=== PATIENT | female | born 1945 | race Caucasian/White ===

== ENCOUNTER 2024-12-03 00:10 | Emergency (ER) | payer MEDICARE, SELFPAY ==
[2024-12-03 00:12] VITALS: PULSE 86; TEMP 36.4; O2SAT 98; BMI 41.4
[2024-12-03 00:20] VITALS: BP 124/80
--- NOTE | 2024-12-03 00:54 | PC.NURSE ---
Pt admitted to the [place] 12/01/24. She has one more PO dose of Cipro and Flagyl to take to complete the course.
[2024-12-03] MEDS: ONDANSETRON PF 4 MG/2 ML VIAL IV ×2 (01:14→01:37)
[2024-12-03] MEDS: MORPHINE SULFATE 4 MG/ML VIAL IV (01:14)
--- NOTE | 2024-12-03 01:16 | ED.ABDPAIN1 ---
HPI - Abdominal Pain General Chief Complaint: Abdominal Pain Stated Complaint: ABDOMINAL PAIN Time Seen by Provider: 12/03/24 00:12 Source: patient Mode of arrival: ambulance History of Present Illness HPI narrative: This 79-year-old female with a history of diverticulitis who has been on Cipro and Flagyl for the past week after being diagnosed with diverticulitis on 11/28/2024 at [facility] presents for evaluation of periumbilical abdominal pain that radiates out to both sides of her abdomen. The patient was seen and evaluated and admitted to [facility] and discharged to the [facility] 2 days ago. Her last dose of Cipro and Flagyl is scheduled for later today. The patient states she has been having some diarrhea. She does not feel constipated. She denies any urinary symptoms. She states her symptoms started 3 weeks ago with a blister on her left foot and since she is diabetic she was nonambulatory and was transferred to a rehab center. At the rehab center she had trouble going to the bathroom and ultimately became constipated. She then started having abdominal pain and was sent to the emergency department where a CT scan of her abdomen pelvis showed wall thickening of the rectum with some slight adjacent stranding with eccentric wall thickening measuring well through the 1 cm with recommendation for direct visualization. She has not had any fever. She states her appetite is somewhat diminished. She is not having any chest pain or shortness of breath. She is on Eliquis and has had a mitral valve replacement. She request something for pain but states that Percocet makes her hallucinate. She was agreeable to morphine. Related Data Home Medications ?Medication ?Instructions ?Recorded ?Confirmed amoxicillin 500 mg capsule 500 mg PO QAM 12/03/24 12/03/24 apixaban 5 mg tablet (Eliquis) 5 mg PO BID 12/03/24 12/03/24 aspirin 81 mg tablet,delayed 81 mg PO DAILY 12/03/24 12/03/24 release (Adult Low Dose Aspirin) atorvastatin 10 mg tablet 10 mg PO DAILY 12/03/24 12/03/24 bisoprolol fumarate 5 mg tablet 5 mg PO QAM 12/03/24 12/03/24 bumetanide 1 mg tablet 2 mg PO DAILY 12/03/24 12/03/24 estradiol 0.01% (0.1 mg/gram) 1 appful vaginal .3 times a week 12/03/24 12/03/24 vaginal cream fluocinonide 0.05 % topical cream 1 applic topical QPM 12/03/24 12/03/24 fluticasone propionate 50 2 spray intranasal DAILY PRN 12/03/24 12/03/24 mcg/actuation nasal allergy symptoms spray,suspension (Flonase Allergy Relief) gabapentin 100 mg capsule 100 mg PO TID 12/03/24 12/03/24 insulin glargine 100 unit/mL 14 unit subcut QAM 12/03/24 12/03/24 subcutaneous solution (Lantus U-100 Insulin) levothyroxine 200 mcg tablet 200 mcg PO QAM 12/03/24 12/03/24 magnesium chloride 71.5 mg 71.5 mg PO BID 12/03/24 12/03/24 (magnesium chloride) tablet,delayed release (Slow-Mag) mometasone-formoterol HFA 100 2 inh inhalation BID 12/03/24 12/03/24 mcg-5 mcg/actuation aerosol inhaler (Dulera) omeprazole 40 mg capsule,delayed 40 mg PO BID 12/03/24 12/03/24 release polyethylene glycol 3350 17 17 g PO QAM 12/03/24 12/03/24 gram/dose oral powder (ClearLax) sennosides 8.6 mg tablet (senna) 8.6 mg PO QPM 12/03/24 12/03/24 sitagliptin phosphate 25 mg tablet 25 mg PO DAILY 12/03/24 12/03/24 (Januvia) spironolactone 25 mg tablet 25 mg PO QAM 12/03/24 12/03/24 trospium 60 mg capsule,extended 60 mg PO QAM 12/03/24 12/03/24 release 24 hr vit C 250 mg-vit E 90 mg-zinc 40 1 tab PO DAILY 12/03/24 12/03/24 mg-copper 1 [id number] capsule (PreserVision AREDS-2) Allergies Allergy/AdvReac Type Severity Reaction Status Date / Time dapagliflozin (From [facility]) Allergy Severe Unknown Verified 12/03/24 00:20 metformin Allergy Severe Unknown Verified 12/03/24 00:20 metoprolol Allergy Severe Unknown Verified 12/03/24 00:20 Sulfa (Sulfonamide Allergy Severe Rash Verified 12/03/24 00:20 Antibiotics) Review of Systems ROS Status of ROS 10 or more systems reviewed and unremarkable except as noted in history and below Exam Narrative Exam Narrative: Vital signs and Nursing Notes reviewed: Patient is afebrile with a normal pulse, normal blood pressure, she is not hypoxic with pulse ox of 98% on room air General: Awake, alert, oriented, no acute distress, lying comfortably on the stretcher-patient is a good historian regarding recent events HEENT: Normocephalic atraumatic, mucous membranes are moist and pink, eyes are clear, normal conjunctiva, vision is grossly intact, posterior pharynx is normal in appearance. Neck: Supple, no meningeal signs, no anterior or posterior cervical lymphadenopathy Chest: Faint bibasilar rales, no respiratory distress, no wheezing or rhonchi noted CVS: Regular rate and rhythm S1-S2, no murmurs rubs or gallops, pulses are brisk and equal bilaterally ABD: Obese, soft, diffusely tender, localizes to the periumbilical area with no rebound guarding or rigidity. I do not appreciate any peritoneal signs. Extremities: Moving all extremities, Kerlix dressing over the left foot Skin: Normal in appearance without rash,pallor, petechiae or purpura Neuro: No focal deficits Constitutional Vital Signs, click to edit/add: Last Vital Signs Temp 97.6 F 12/03/24 00:12 Pulse 86 12/03/24 00:12 Resp 16 12/03/24 00:12 BP 124/80 12/03/24 00:20 Pulse Ox 98 12/03/24 00:12 O2 Del Method Room Air 12/03/24 00:12 Course Vital Signs Vital signs: Vital Signs Temperature 97.6 F 12/03/24 00:12 Pulse Rate 86 12/03/24 00:12 Respiratory Rate 16 12/03/24 00:12 Pulse Oximetry 98 12/03/24 00:12 Oxygen Delivery Method Room Air 12/03/24 00:12 Temperature 97.6 F 12/03/24 00:12 Pulse Rate 86 12/03/24 00:12 Respiratory Rate 16 12/03/24 00:12 Blood Pressure 124/80 12/03/24 00:20 Pulse Oximetry 98 12/03/24 00:12 Oxygen Delivery Method Room Air 12/03/24 00:12 MDM - Abdominal Pain MDM Narrative Medical decision making narrative: This 79-year-old female who was recently sent to the [facility] after she was a patient at [facility] and diagnosed with diverticulitis after a CT scan showed some thickening around the rectum and was prescribed Cipro and Flagyl the last dose to be given later today presents from the [facility] for abdominal pain that is periumbilical and radiating out bilaterally. She has not had a fever. She states she is not constipated. She has been having some degree of diarrhea. She did not have any diarrhea in the emergency department. An IV was placed and she was given a dose of IV morphine and 2 doses of Zofran for nausea. She complained of ongoing pain and was given a dose of Bentyl. She has a normal white count and stable hemoglobin. Electrolytes are normal with an elevated BUN and creatinine at 44 and 2.02. Glucose is elevated at 231. Total bilirubin is 1.2. Lipase is normal at 17. CT scan of the abdomen pelvis without contrast was ordered due to her renal insufficiency and does not show any acute findings. The results of the CT scan were discussed with her and she is frustrated stating that she does not understand why she is still having this abdominal pain. She will be given a dose of tramadol and is agreeable to being transferred back to the [facility]. Lab Data Labs: Lab Results 12/03/24 Range/Units 01:08 WBC 9.3 (4.0-11.0) 10^3/uL RBC 5.85 H (4.20-5.40) 10^6/uL Hgb 16.7 H (12.0-16.0) g/dL Hct 51.9 H (36.0-48.0) % MCV 88.7 (81.0-99.0) fL MCH 28.5 (26.7-34.0) pg MCHC 32.2 (29.9-35.2) g/dL RDW 18.6 H (11.0-15.0) % Plt Count 117 L (150-450) 10^3/uL MPV 12.7 (9.5-13.5) fL Neut % (Auto) 73.2 (43.0-75.0) % Lymph % (Auto) 16.3 L (20.5-60.0) % Warren % (Auto) 7.2 (1.7-12.0) % Eos % (Auto) 1.6 (0.9-7.0) % Baso % (Auto) 0.6 (0.2-2.0) % Neut # (Auto) 6.8 H (1.4-6.5) 10^3/uL Lymph # (Auto) 1.5 (1.2-3.8) 10^3/uL Warren # (Auto) 0.7 (0.3-0.8) 10^3/uL Eos # (Auto) 0.2 (0.0-0.7) 10^3/uL Baso # (Auto) 0.1 (0.0-0.1) 10^3/uL Abs Immat Gran (auto) 0.10 H (0.00-0.03) 10^3/uL Imm/Tot Granulo (auto) 1.1 H (0.0-0.5) % Sodium 134 L (136-145) mmol/L Potassium 3.9 (3.5-5.1) mmol/L Chloride 98 (98-107) mmol/L Carbon Dioxide 28.9 (21.0-32.0) mmol/L Anion Gap 11.0 BUN 44.0 H (7.0-18.0) mg/dL Creatinine 2.02 H (0.55-1.02) mg/dL Est GFR ( Amer) 29 L (>=60 mL/min/1.73m^2) Est GFR (Non-Af Amer) 24 L (>=60 mL/min/1.73m^2) BUN/Creatinine Ratio 21.8 Glucose 231 H (74-106) mg/dL Calcium 9.6 (8.5-10.1) mg/dL Total Bilirubin 1.2 H (0.2-1.0) mg/dL AST 28 (15-37) U/L ALT 21 (14-59) U/L Alkaline Phosphatase 161 H (46-116) U/L Total Protein 7.2 (6.4-8.2) g/dL Albumin 3.0 L (3.4-5.0) g/dL Globulin 4.2 g/dL Albumin/Globulin Ratio 0.7 Lipase 17.0 (16.0-77.0) U/L Imaging Data CT scan - abdomen: Radiologist's impression: No evidence of acute abdominal pelvic pathology with normal-appearing appendix, no free air or free fluid in the abdomen or pelvis no evidence of bowel obstruction Discharge Plan Discharge Chief Complaint: Abdominal Pain Clinical Impression: Abdominal pain, Chronic kidney disease (CKD) Patient Disposition: Home, Self-Care Time of Disposition Decision: 03:57 Condition: Good Prescriptions / Home Meds: No Action amoxicillin 500 mg capsule 500 mg PO QAM Eliquis 5 mg tablet 5 mg PO BID atorvastatin 10 mg tablet 10 mg PO DAILY aspirin [Adult Low Dose Aspirin] 81 mg tablet,delayed release (DR/EC) 81 mg PO DAILY bisoprolol fumarate 5 mg tablet 5 mg PO QAM bumetanide 1 mg tablet 2 mg PO DAILY Dulera 100-5 mcg/actuation HFA aerosol inhaler 2 inh inhalation BID estradiol 0.01 % (0.1 mg/gram) cream 1 appful VAGINAL .3 times a week gabapentin 100 mg capsule 100 mg PO TID levothyroxine 200 mcg tablet 200 mcg PO QAM omeprazole 40 mg capsule,delayed release(DR/EC) 40 mg PO BID spironolactone 25 mg tablet 25 mg PO QAM trospium 60 mg capsule,extended release 24hr 60 mg PO QAM Januvia 25 mg tablet 25 mg PO DAILY sennosides [senna] 8.6 mg tablet 8.6 mg PO QPM polyethylene glycol 3350 [ClearLax] 17 gram/dose powder 17 g PO QAM insulin glargine [Lantus U-100 Insulin] 100 unit/mL solution 14 unit subcut QAM fluocinonide 0.05 % cream 1 applic topical QPM fluticasone propionate [Flonase Allergy Relief] 50 mcg/actuation spray,suspension 2 spray intranasal DAILY PRN (Reason: allergy symptoms) Rx Instructions: administer into each nostril PreserVision AREDS-2 250-90-40-1 mg capsule 1 tab PO DAILY Slow-Mag 71.5 mg tablet,delayed release (DR/EC) 71.5 mg PO BID Print Language: Kiswahili Instructions: Abdominal Pain (ED), Diabetic Kidney Disease (ED) Referrals: MARCELLE CASEY DO [Primary Care Provider] - 1 week
[2024-12-03 01:21] LABS: Basophils Absolute Auto 0.1 10^3/uL (0.0-0.1); Basophils Percent Auto 0.6 % (0.2-2.0); Eosinophils Absolute Auto 0.2 10^3/uL (0.0-0.7); Eosinophils Percent Auto 1.6 % (0.9-7.0); Hematocrit 51.9 % (36.0-48.0); Hemoglobin 16.7 g/dL (12.0-16.0); Immature Granulocytes Pct Auto 1.1 % (0.0-0.5); Lymphocytes Absolute Auto 1.5 10^3/uL (1.2-3.8); Lymphocytes Percent Auto 16.3 % (20.5-60.0); Mean Corpuscular HGB Conc 32.2 g/dL (29.9-35.2); Mean Corpuscular Hemoglobin 28.5 pg (26.7-34.0); Mean Corpuscular Volume 88.7 fL (81.0-99.0); Mean Platelet Volume 12.7 fL (9.5-13.5); Monocytes Absolute Auto 0.7 10^3/uL (0.3-0.8); Monocytes Percent Auto 7.2 % (1.7-12.0); Neutrophils Absolute Auto 6.8 10^3/uL (1.4-6.5); Neutrophils Percent Auto 73.2 % (43.0-75.0); Platelet Count 117 10^3/uL (150-450); Red Blood Count 5.85 10^6/uL (4.20-5.40); Red Cell Distribution Width 18.6 % (11.0-15.0); White Blood Count 9.3 10^3/uL (4.0-11.0)
[2024-12-03 01:35] LABS: Alanine Aminotransferase 21 U/L (14-59); Albumin Globulin Ratio 0.7; Alkaline Phosphatase 161 U/L (46-116); Aspartate Amino Transferase 28 U/L (15-37); BUN Creatinine Ratio 21.8; Bilirubin Total 1.2 mg/dL (0.2-1.0); Calcium 9.6 mg/dL (8.5-10.1); Carbon Dioxide 28.9 mmol/L (21.0-32.0); Chloride 98 mmol/L (98-107); Estimated GFR (African America 29 (>=60 mL/min/1.73m^2); Estimated GFR (Non-African Ame 24 (>=60 mL/min/1.73m^2); Globulin 4.2 g/dL; Glucose 231 mg/dL (74-106); Potassium 3.9 mmol/L (3.5-5.1); Sodium 134 mmol/L (136-145); Total Protein 7.2 g/dL (6.4-8.2)
[2024-12-03] MEDS: 0.9 % SODIUM CHLORIDE 1,000 ML 500 ML IV (01:43)
[2024-12-03] MEDS: DICYCLOMINE HCL 10 MG CAPSULE 20 MG PO (02:41)
[2024-12-03] MEDS: TRAMADOL HCL 50 MG TABLET PO (04:15)
[2024-12-03 05:07] VITALS: BP 118/56; PULSE 80; O2SAT 95
== END 2024-12-03 05:22 | disposition home or self-care (01) ==
PROVIDERS: Emergency Provider Emergency Medicine; PCP Family Medicine
DX: R10.9 Unspecified abdominal pain (principal); N18.9 Chronic kidney disease, unspecified; Z90.710 Acquired absence of both cervix and uterus; E11.9 Type 2 diabetes mellitus without complications; Z79.01 Long term (current) use of anticoagulants; Z95.2 Presence of prosthetic heart valve; Z79.4 Long term (current) use of insulin
CPT/HCPCS: 36415; 74176; 80053; 83690; 85025; 96361; 96374; 96375; 99284; J2270; J2405

== ENCOUNTER 2025-01-03 12:42 | Inpatient (IN) | payer MEDICARE, SELFPAY ==
[2025-01-03] VITALS (60 sets, daily range): BP systolic 94–159; BP diastolic 52–125; PULSE 69–113; TEMP 36.1; O2SAT 87–100; BMI 47.6; BMI 42.1
--- NOTE | 2025-01-03 12:58 | ED_ITS ---
HPI HPI - General Adult General Chief complaint: Shortness of Breath/Dyspnea Stated complaint: WEAKNESS/SOB Time Seen by Provider: 01/03/25 12:51 Source: patient Mode of arrival: ambulance Limitations: no limitations History of Present Illness HPI narrative: This 79-year-old female presents with 2-day history of shortness of breath. She denies fever but has a cough. She is status post coronary artery bypass graft in the remote past and has a history of diabetes. She has chronic atrial fibrillation. Patient had recent admission to [facility] for diverticulitis last month. She has been in long-term facility since then. In the last few days she has developed shortness of breath and wheezing with cough. Related Data Home Medications ?Medication ?Instructions ?Recorded ?Confirmed amoxicillin 500 mg capsule 500 mg PO QAM 12/03/24 01/03/25 apixaban 5 mg tablet (Eliquis) 5 mg PO BID 12/03/24 01/03/25 aspirin 81 mg tablet,delayed 81 mg PO DAILY 12/03/24 01/03/25 release (Adult Low Dose Aspirin) atorvastatin 10 mg tablet 10 mg PO DAILY 12/03/24 01/03/25 bisoprolol fumarate 5 mg tablet 5 mg PO QAM 12/03/24 01/03/25 bumetanide 1 mg tablet 2 mg PO DAILY 12/03/24 01/03/25 estradiol 0.01% (0.1 mg/gram) 1 appful vaginal .3 times a week 12/03/24 01/03/25 vaginal cream fluocinonide 0.05 % topical cream 1 applic topical QPM 12/03/24 01/03/25 fluticasone propionate 50 2 spray intranasal DAILY PRN 12/03/24 01/03/25 mcg/actuation nasal allergy symptoms spray,suspension (Flonase Allergy Relief) gabapentin 100 mg capsule 100 mg PO TID 12/03/24 01/03/25 insulin glargine 100 unit/mL 14 unit subcut QA 12/03/24 01/03/25 subcutaneous solution (Lantus U-100 Insulin) levothyroxine 200 mcg tablet 200 mcg PO QAM 12/03/24 01/03/25 magnesium chloride 71.5 mg 71.5 mg PO BID 12/03/24 01/03/25 (magnesium chloride) tablet,delayed release (Slow-Mag) mometasone-formoterol HFA 100 2 inh inhalation BID 12/03/24 01/03/25 mcg-5 mcg/actuation aerosol inhaler (Dulera) omeprazole 40 mg capsule,delayed 40 mg PO BID 12/03/24 01/03/25 release polyethylene glycol 3350 17 17 g PO QAM 12/03/24 01/03/25 gram/dose oral powder (ClearLax) sennosides 8.6 mg tablet (senna) 8.6 mg PO QPM 12/03/24 01/03/25 sitagliptin phosphate 25 mg tablet 25 mg PO DAILY 12/03/24 01/03/25 (Januvia) spironolactone 25 mg tablet 25 mg PO QAM 12/03/24 01/03/25 trospium 60 mg capsule,extended 60 mg PO QAM 12/03/24 01/03/25 release 24 hr vit C 250 mg-vit E 90 mg-zinc 40 1 tab PO DAILY 12/03/24 01/03/25 mg-copper 1 [id number] capsule (PreserVision AREDS-2) acetaminophen 325 mg capsule 650 mg PO Q6H PRN fever or pain 01/03/25 01/03/25 azithromycin 250 mg tablet See Rx Instructions PO .COMPLEX 01/03/25 01/03/25 benzonatate 100 mg capsule 100 mg PO TID 01/03/25 01/03/25 mometasone-formoterol HFA 100 2 inh inhalation Q12H 01/03/25 01/03/25 mcg-5 mcg/actuation aerosol inhaler (Dulera) ondansetron 4 mg disintegrating 4 mg PO Q6H 01/03/25 01/03/25 tablet prednisone 50 mg tablet 50 mg PO DAILY 01/03/25 01/03/25 promethazine 12.5 mg tablet 12.5 mg PO Q6H 01/03/25 01/03/25 ropinirole 0.5 mg tablet 0.5 mg PO DAILY 01/03/25 01/03/25 tramadol 50 mg tablet 25 mg PO Q6H PRN pain 01/03/25 01/03/25 Allergies Allergy/AdvReac Type Severity Reaction Status Date / Time dapagliflozin (From [facility]) Allergy Severe Unknown Verified 12/03/24 00:20 metformin Allergy Severe Unknown Verified 12/03/24 00:20 metoprolol Allergy Severe Unknown Verified 12/03/24 00:20 Sulfa (Sulfonamide Allergy Severe Rash Verified 12/03/24 00:20 Antibiotics) Opioid HPI Opioid Management Most Recent Opioid Data: Last Pain Scale 9 12/03/24 04:15 12/03/24 Review of Systems ROS Status of ROS 10 or more systems reviewed and unremark able except as noted in history and below PFS PFS Medical History Type 2 diabetes mellitus ?E11.9 - Type 2 diabetes mellitus without complications (ICD-10) Osteoarthritis ?M19.90 - Unspecified osteoarthritis, unspecified site (ICD-10) Acute constipation ?K59.00 - Constipation, unspecified (ICD-10) GERD (gastroesophageal reflux disease) ?K21.9 - Gastro-esophageal reflux disease without esophagitis (ICD-10) Pacemaker ?Z95.0 - Presence of cardiac pacemaker (ICD-10) Weakness ?R53.1 - Weakness (ICD-10) Diarrhea ?R19.7 - Diarrhea, unspecified (ICD-10) Lymphedema ?I89.0 - Lymphedema, not elsewhere classified (ICD-10) Anxiety ?F41.9 - Anxiety disorder, unspecified (ICD-10) Depression ?F32.A - Depression, unspecified (ICD-10) Hypothyroidism ?E03.9 - Hypothyroidism, unspecified (ICD-10) Asthma ?J45.909 - Unspecified asthma, uncomplicated (ICD-10) Diverticul disease small and large intestine, no perforati or abscess ?K57.50 - Diverticulosis of both small and large intestine without perforation or abscess without bleeding (ICD-10) Sleep apnea ?G47.30 - Sleep apnea, unspecified (ICD-10) Anemia ?D64.9 - Anemia, unspecified (ICD-10) Pulmonary hypertension ?I27.20 - Pulmonary hypertension, unspecified (ICD-10) Atrial fibrillation ?I48.91 - Unspecified atrial fibrillation (ICD-10) CHF (congestive heart failure) ?I50.9 - Heart failure, unspecified (ICD-10) Hypertensive cardiovascular disease ?I11.9 - Hypertensive heart disease without heart failure (ICD-10) Gastroenteritis ?K52.9 - Noninfective gastroenteritis and colitis, unspecified (ICD-10) Social History Little interest or pleasure in doing things: not at all Feeling down, depressed, or hopeless: not at all Exam Narrative Exam Narrative: Obese in appearance and in respiratory distress with conversational dyspnea. Her heart rate ranges from the 80s to the 120s. She is in atrial fibrillation on the monitor. Blood pressure is on the low normal side dropping into the 90s systolic. There is conversational dyspnea with some audible wheezing. She is mentating normally. HEENT exam is normal to inspection. Auscultation lungs reveals diminished air entry with coarse rhonchi in all lung zones. There are also scattered coarse rales. Heart has distant sounds due to body habitus with irregular rhythm. Abdomen is protuberant, soft nontender. Patient has 3+ pitting edema of the lower extremities with venous stasis dermatitis bilaterally. Constitutional Vital Signs, click to edit/add: Last Vital Signs Pulse 72 01/03/25 17:56 Resp 26 H 01/03/25 18:09 BP 106/52 01/03/25 18:09 Pulse Ox 96 01/03/25 18:09 O2 Del Method Nasal Cannula 01/03/25 17:56 O2 Flow Rate 3 01/03/25 18:09 Course Vital Signs Vital signs: Vital Signs Pulse Rate 84 01/03/25 12:46 Respiratory Rate 24 H 01/03/25 12:46 Blood Pressure 114/74 01/03/25 12:46 Pulse Oximetry 99 01/03/25 12:46 Oxygen Delivery Method Room Air 01/03/25 12:46 Pulse Rate 72 01/03/25 17:56 Respiratory Rate 26 H 01/03/25 18:09 Blood Pressure 106/52 01/03/25 18:09 Pulse Oximetry 96 01/03/25 18:09 Oxygen Delivery Method Nasal Cannula 01/03/25 17:56 Oxygen Delivery Flow Rate 3 01/03/25 18:09 Medical Decision Making [facility] Narrative Medical decision making narrative: The first twelve-lead EKG is interpreted by me and it shows atrial fibrillation with a rate of 88 bpm. There is left axis deviation and no acute ST elevation. The second twelve-lead EKG is interpreted by me and was performed a little over 4 hours after the first 1. This also shows atrial fibrillation with a rate of 78 beats a minute with left axis deviation and no acute ST elevation. CBC was fairly unremarkable except for slightly elevated white count of 11.3. Platelets were slightly low at 214,000. She had a normal hemoglobin of 15.1. Potassium was normal at 3.8. BUN was up at 61 higher than her baseline and the creatinine was also elevated at 2.05. Lactate was elevated at 2.3. Patient's troponin levels have been 44.2 initially and then 52.2. The BNP is elevated at greater than 35,000. Chest x-ray is read by me showing interstitial edema and cardiomegaly. I do not see any infiltrate. Patient's thyroid functions are significant for low TSH with elevated T4. This is suggestive of hyper thyroidism. She has been treated with 80 mg Lasix IV. She has diuresed over 300 cc of urine. She received a couple aerosol treatments which helped but the wheezing is coming back so she will get another albuterol aerosol treatment. Findings are discussed with hospitalist ENGINEERING AIDE on-call who is admitting her. Lab Data Labs: Lab Results 01/03/25 01/03/25 Range/Units 13:11 16:06 WBC 11.3 H (4.0-11.0) 10^3/uL RBC 5.31 (4.20-5.40) 10^6/uL Hgb 15.1 (12.0-16.0) g/dL Hct 46.7 (36.0-48.0) % MCV 87.9 (81.0-99.0) fL MCH 28.4 (26.7-34.0) pg MCHC 32.3 (29.9-35.2) g/dL RDW 19.1 H (11.0-15.0) % Plt Count 114 L (150-450) 10^3/uL MPV 11.6 (9.5-13.5) fL Neut % (Auto) 82.6 H (43.0-75.0) % Lymph % (Auto) 11.8 L (20.5-60.0) % Ida % (Auto) 4.0 (1.7-12.0) % Eos % (Auto) 0.0 L (0.9-7.0) % Baso % (Auto) 0.3 (0.2-2.0) % Neut # (Auto) 9.3 H (1.4-6.5) 10^3/uL Lymph # (Auto) 1.3 (1.2-3.8) 10^3/uL Ida # (Auto) 0.5 (0.3-0.8) 10^3/uL Eos # (Auto) 0.0 (0.0-0.7) 10^3/uL Baso # (Auto) 0.0 (0.0-0.1) 10^3/uL Abs Immat Gran (auto) 0.15 H (0.00-0.03) 10^3/uL Imm/Tot Granulo (auto) 1.3 H (0.0-0.5) % PT 15.9 H (9.0-11.6) sec INR 1.57 APTT 33.6 (22.3-36.2) sec VBG pH 7.402 (7.330-7.430) VBG pCO2 46.2 (40.0-52.0) mmHg Sodium 133 L (136-145) mmol/L Potassium 3.8 (3.5-5.1) mmol/L Chloride 95 L (98-107) mmol/L Carbon Dioxide 28.3 (21.0-32.0) mmol/L Anion Gap 13.5 BUN 61.0 H (7.0-18.0) mg/dL Creatinine 2.05 H (0.55-1.02) mg/dL Est GFR ( Amer) 28 L (>=60 mL/min/1.73m^2) Est GFR (Non-Af Amer) 23 L (>=60 mL/min/1.73m^2) BUN/Creatinine Ratio 29.8 Glucose 151 H (74-106) mg/dL Lactate 2.5 H* 2.3 H* (0.4-2.0) mmol/L Calcium 9.9 (8.5-10.1) mg/dL Magnesium 2.3 (1.8-2.4) mg/dL Total Bilirubin 1.7 H (0.2-1.0) mg/dL AST 24 (15-37) U/L ALT 19 (14-59) U/L Alkaline Phosphatase 156 H (46-116) U/L Troponin I High Sens 44.2 52.2 H* (4.0-51.3) pg/mL NT-Pro-B Natriuret Pep >13844.0 H* (<=1800.0) pg/mL Total Protein 6.7 (6.4-8.2) g/dL Albumin 2.7 L (3.4-5.0) g/dL Globulin 4.0 g/dL Albumin/Globulin Ratio 0.7 Free T4 2.41 H (0.76-1.46) ng/dL TSH & Free T4 Interp 0.057 L (0.358-3.740) uIU/mL Discharge Plan Discharge Chief Complaint: Shortness of Breath/Dyspnea Clinical Impression: Congestive heart failure Patient Disposition: Admitted As Inpatient Time of Disposition Decision: 18:26 Condition: Fair
--- NOTE | 2025-01-03 13:02 | ECG_ITS ---
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 Measurements Intervals [place] Rate: 88 P: -30465 [place]: 150 QRS: -59 QRSD: 126 T: 115 QT: 410 QTc: 456 Interpretive Statements Sinus rhythm with frequent premature supraventricular complexes 2420 RSR (QR) in lead V1/V2, consistent with right ventricular conduction delay 2630 Left anterior fascicular block 3414 Cannot rule out septal myocardial infarction, age undetermined 3534 Lateral myocardial infarction, age undetermined Nonspecific ST & T wave changes 5222 Moderate voltage criteria for LVH, may be normal variant 9150 abnormal ECG No previous ECG available for comparison Electronically Signed On 01-03-2025 20:49:30 EDT by STEVE PENA M.D.
[2025-01-03] MEDS: IPRATROPIUM/ALBUTEROL SULFATE 3 ML AMPUL.NEB IH ×2 (13:20→17:56)
[2025-01-03] MEDS: ALBUTEROL SULFATE 2.5 MG/3 ML VIAL NEB IH (13:20)
[2025-01-03 13:41] LABS: Basophils Percent Auto 0.3 % (0.2-2.0); Hematocrit 46.7 % (36.0-48.0); Hemoglobin 15.1 g/dL (12.0-16.0); Immature Granulocytes Abs Auto 0.15 10^3/uL (0.00-0.03); Immature Granulocytes Pct Auto 1.3 % (0.0-0.5); Lymphocytes Absolute Auto 1.3 10^3/uL (1.2-3.8); Lymphocytes Percent Auto 11.8 % (20.5-60.0); Mean Corpuscular HGB Conc 32.3 g/dL (29.9-35.2); Mean Corpuscular Hemoglobin 28.4 pg (26.7-34.0); Mean Corpuscular Volume 87.9 fL (81.0-99.0); Mean Platelet Volume 11.6 fL (9.5-13.5); Monocytes Absolute Auto 0.5 10^3/uL (0.3-0.8); Neutrophils Absolute Auto 9.3 10^3/uL (1.4-6.5); Neutrophils Percent Auto 82.6 % (43.0-75.0); PCO2 VBG 46.2 mmHg (40.0-52.0); Platelet Count 114 10^3/uL (150-450); Red Blood Count 5.31 10^6/uL (4.20-5.40); Red Cell Distribution Width 19.1 % (11.0-15.0); White Blood Count 11.3 10^3/uL (4.0-11.0); pH VBG 7.402 (7.330-7.430)
[2025-01-03 13:55] LABS: INR 1.57; Partial Thromboplastin Time 33.6 sec (22.3-36.2); Prothrombin Time 15.9 sec (9.0-11.6)
[2025-01-03 14:09] LABS: Lactate/Lactic Acid 2.5 mmol/L (0.4-2.0)
[2025-01-03 14:10] LABS: Alanine Aminotransferase 19 U/L (14-59); Albumin Globulin Ratio 0.7; Albumin Level 2.7 g/dL (3.4-5.0); Alkaline Phosphatase 156 U/L (46-116); Anion Gap 13.5; Aspartate Amino Transferase 24 U/L (15-37); BUN Creatinine Ratio 29.8; Bilirubin Total 1.7 mg/dL (0.2-1.0); Calcium 9.9 mg/dL (8.5-10.1); Carbon Dioxide 28.3 mmol/L (21.0-32.0); Chloride 95 mmol/L (98-107); Estimated GFR (African America 28 (>=60 mL/min/1.73m^2); Estimated GFR (Non-African Ame 23 (>=60 mL/min/1.73m^2); Glucose 151 mg/dL (74-106); Magnesium 2.3 mg/dL (1.8-2.4); Potassium 3.8 mmol/L (3.5-5.1); Sodium 133 mmol/L (136-145); TSH W/ REFLEX FT4 0.057 uIU/mL (0.358-3.740); Total Protein 6.7 g/dL (6.4-8.2); Troponin I High Sensitivity 44.2 pg/mL (4.0-51.3)
[2025-01-03 14:13] LABS: NT Pro B Type Natriuretic Pept >35000.0 pg/mL (<=1800.0)
[2025-01-03] MEDS: FUROSEMIDE 40 MG/4 ML VIAL 80 MG IVP (14:16)
[2025-01-03 14:38] LABS: Free T4 2.41 ng/dL (0.76-1.46)
[2025-01-03 16:35] LABS: Lactate/Lactic Acid 2.3 mmol/L (0.4-2.0)
[2025-01-03 16:36] LABS: Troponin I High Sensitivity 52.2 pg/mL (4.0-51.3)
--- NOTE | 2025-01-03 17:22 | ECG_ITS ---
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 Measurements Intervals [place] Rate: 78 P: -83889 [place]: 150 QRS: -54 QRSD: 122 T: 109 QT: 398 QTc: 432 Interpretive Statements Sinus rhythm with frequent premature supraventricular complexes 2420 RSR (QR) in lead V1/V2, consistent with right ventricular conduction delay 3414 Cannot rule out septal myocardial infarction, age undetermined 68546 Twave abnormality, possible lateral ischemia or digitalis effect 5233 Voltage criteria for LVH 7200 Abnormal left axis deviation 9150 abnormal ECG Compared to ECG 01/03/2025 12:48:55 No significant changes Electronically Signed On 01-03-2025 20:58:18 EDT by STEVE PENA M.D.
--- NOTE | 2025-01-03 19:07 | PC.NURSE ---
Report given to floor per Sharon DIANA. Pt to go up to the floor when Pauline calls.
--- NOTE | 2025-01-03 19:26 | PC.NURSE ---
Informed pt that she will be taken upstairs as soon as the floor calls us.
[2025-01-03 20:47] LABS: C Reactive Protein 2.75 mg/dL (<=0.50)
[2025-01-03 22:01] LABS: Glucometer 115 mg/dL (74-106)
[2025-01-03] MEDS: GABAPENTIN 100 MG CAPSULE PO (22:01)
[2025-01-03] MEDS: BENZONATATE 100 MG CAPSULE PO (22:01)
[2025-01-04] VITALS (10 sets, daily range): BP systolic 70–112; BP diastolic 56–84; PULSE 65–113; TEMP 36.6–36.7; O2SAT 91–99
--- NOTE | 2025-01-04 05:00 | ECG_ITS ---
The [facility] Test Date: 2025-01-04 Pat Name: AURELIO TURNER Department: Room: 2181 Gender: Female Reject Opener: : 1945 Requested By: [id number] Order Number: [id number] Reading MD: STEVE PENA M.D. Measurements Intervals [place] Rate: 78 P: [place]: QRS: -55 QRSD: 125 T: 112 QT: 411 QTc: 468 Interpretive Statements Sinus rhythm with frequent premature supraventricular complexes and demand atrial pacemaker MARKED LEFT AXIS DEVIATION [QRS AXIS < -30] POSSIBLE RIGHT VENTRICULAR CONDUCTION DELAY [RSR (QR) IN V1/V2] VOLTAGE CRITERIA FOR LVH [MEETS CRITERIA IN ONE OF: R(aVL), S(V1), R(V5), R(V5/V6)+S(V1)] POSSIBLE SEPTAL MYOCARDIAL INFARCTION [30 ms Q WAVE IN V1/V2], OF INDETERMINATE AGE MODERATE T-WAVE ABNORMALITY, CONSIDER LATERAL ISCHEMIA [-0.1+ mV T WAVE IN I/aVL/V5/V6] Compared to ECG 01/03/2025 17:27:13 Demand atrial pacing is now present Electronically Signed On 01-04-2025 7:02:24 EDT by STEVE PENA M.D.
[2025-01-04] MEDS: GABAPENTIN 100 MG CAPSULE PO ×3 (06:10→21:37)
[2025-01-04] MEDS: BUMETANIDE 1 MG/4 ML VIAL IVP ×2 (06:10→17:07)
[2025-01-04] MEDS: BENZONATATE 100 MG CAPSULE PO ×3 (06:10→21:37)
[2025-01-04 06:39] LABS: Basophils Percent Auto 0.2 % (0.2-2.0); Eosinophils Absolute Auto 0.2 10^3/uL (0.0-0.7); Eosinophils Percent Auto 1.3 % (0.9-7.0); Hematocrit 46.2 % (36.0-48.0); Hemoglobin 14.8 g/dL (12.0-16.0); Immature Granulocytes Abs Auto 0.14 10^3/uL (0.00-0.03); Immature Granulocytes Pct Auto 1.2 % (0.0-0.5); Lymphocytes Absolute Auto 1.4 10^3/uL (1.2-3.8); Lymphocytes Percent Auto 12.4 % (20.5-60.0); Mean Corpuscular Volume 87.5 fL (81.0-99.0); Mean Platelet Volume 12.6 fL (9.5-13.5); Monocytes Absolute Auto 0.4 10^3/uL (0.3-0.8); Monocytes Percent Auto 3.7 % (1.7-12.0); Neutrophils Absolute Auto 9.1 10^3/uL (1.4-6.5); Neutrophils Percent Auto 81.2 % (43.0-75.0); Platelet Count 103 10^3/uL (150-450); Red Blood Count 5.28 10^6/uL (4.20-5.40); Red Cell Distribution Width 19.5 % (11.0-15.0); White Blood Count 11.2 10^3/uL (4.0-11.0)
[2025-01-04 07:02] LABS: Alanine Aminotransferase 16 U/L (14-59); Albumin Globulin Ratio 0.6; Albumin Level 2.4 g/dL (3.4-5.0); Alkaline Phosphatase 137 U/L (46-116); Anion Gap 14.2; Aspartate Amino Transferase 36 U/L (15-37); BUN Creatinine Ratio 34.1; Bilirubin Total 1.6 mg/dL (0.2-1.0); Calcium 9.7 mg/dL (8.5-10.1); Carbon Dioxide 27.6 mmol/L (21.0-32.0); Chloride 97 mmol/L (98-107); Estimated GFR (African America 34 (>=60 mL/min/1.73m^2); Estimated GFR (Non-African Ame 28 (>=60 mL/min/1.73m^2); Globulin 3.8 g/dL; Glucose 140 mg/dL (74-106); Magnesium 2.3 mg/dL (1.8-2.4); Potassium 4.8 mmol/L (3.5-5.1); Sodium 134 mmol/L (136-145); Total Protein 6.2 g/dL (6.4-8.2); Troponin I High Sensitivity 49.5 pg/mL (4.0-51.3)
[2025-01-04] MEDS: ATORVASTATIN CALCIUM 10 MG TABLET PO (08:23)
[2025-01-04] MEDS: ASPIRIN 81 MG TABLET.DR PO (08:24)
[2025-01-04] MEDS: INSULIN GLARGINE 300 UNIT/3 ML INSULN.PEN 14 UNIT SQ (08:24)
[2025-01-04] MEDS: APIXABAN 5 MG TABLET PO ×2 (08:24→21:37)
[2025-01-04] MEDS: SPIRONOLACTONE 25 MG TABLET PO (08:24)
--- NOTE | 2025-01-04 09:23 | PM.HP ---
HPI H&P: HPI History of Present Illness Chief complaint: CHF Narrative: 79 y/o female from SNF with SOB. History of afib and CHF and c/o worsening SOB over past few days. Increased leg edema. SOB with exertion and increased weakness. Chest tight and hard to take deep breath. To ER and BNP elevated. Chest x-ray with evidence of fluid overload. Given IV lasix and admitted. Started IV bumex. Noted hypoxia with SpO2 88% on room air and added supplemental oxygen. Improved and less SOB this am. Opioid HPI Opioid Management Most Recent Pain and Opioid Data: Last Pain Scale 9 12/03/24 04:15 12/03/24 Last Pain Assessment 01/04/25 09:00 Last ORT Total Score 0 01/03/25 20:42 01/03/25 Last ORT Risk Category Low Risk 01/03/25 20:42 01/03/25 Review of Systems ROS Constitutional Reports: fatigue; Denies: fever or chills Cardiovascular Reports: edema; Denies: chest pain or palpitations Respiratory Reports: shortness of breath and cough; Denies: wheezing Gastrointestinal Denies: abdominal pain, nausea, vomiting or diarrhea Genitourinary Denies: painful urination PFSH PFS Medical History (Updated 01/04/25 @ 08:24 by Raheel Guzman MD) Abdominal pain ?R10.9 - Unspecified abdominal pain (ICD-10) Chronic kidney disease (CKD) ?N18.9 - Chronic kidney disease, unspecified (ICD-10) Congestive heart failure ?I50.9 - Heart failure, unspecified (ICD-10) Type 2 diabetes mellitus ?E11.9 - Type 2 diabetes mellitus without complications (ICD-10) Osteoarthritis ?M19.90 - Unspecified osteoarthritis, unspecified site (ICD-10) Acute constipation ?K59.00 - Constipation, unspecified (ICD-10) GERD (gastroesophageal reflux disease) ?K21.9 - Gastro-esophageal reflux disease without esophagitis (ICD-10) Weakness ?R53.1 - Weakness (ICD-10) Diarrhea ?R19.7 - Diarrhea, unspecified (ICD-10) Lymphedema ?I89.0 - Lymphedema, not elsewhere classified (ICD-10) Anxiety ?F41.9 - Anxiety disorder, unspecified (ICD-10) Depression ?F32.A - Depression, unspecified (ICD-10) Hypothyroidism ?E03.9 - Hypothyroidism, unspecified (ICD-10) Asthma ?J45.909 - Unspecified asthma, uncomplicated (ICD-10) Diverticul disease small and large intestine, no perforati or abscess ?K57.50 - Diverticulosis of both small and large intestine without perforation or abscess without bleeding (ICD-10) Sleep apnea ?G47.30 - Sleep apnea, unspecified (ICD-10) Anemia ?D64.9 - Anemia, unspecified (ICD-10) Pulmonary hypertension ?I27.20 - Pulmonary hypertension, unspecified (ICD-10) Atrial fibrillation ?I48.91 - Unspecified atrial fibrillation (ICD-10) CHF (congestive heart failure) ?I50.9 - Heart failure, unspecified (ICD-10) Hypertensive cardiovascular disease ?I11.9 - Hypertensive heart disease without heart failure (ICD-10) Gastroenteritis ?K52.9 - Noninfective gastroenteritis and colitis, unspecified (ICD-10) Surgical History (Updated 01/04/25 @ 08:24 by Raheel Guzman MD) Pacemaker ?Z95.0 - Presence of cardiac pacemaker (ICD-10) Family History (Updated 01/03/25 @ 21:14 by Pauline Rascon) Mother Family history of CHF (congestive heart failure) Family history of cancer Family history of diabetes mellitus Family history of hypertension Family history of stroke Father Family history of CHF (congestive heart failure) Family history of cancer Family history of hypertension Family history of stroke Social History (Updated 01/03/25 @ 21:15 by Pauline Rascon) Within the past year, how often did you have a drink containing alcohol: never Score interpretation: A score less than 3 is consistent with normal alcohol consumption. Smoking status: Never smoker Non-prescribed substance use: denies use Previous occupational history: rertired Highest level of school completed/degree received: some college, no degree Are you now , , , , never or living with a partner: In a typical week, how many times do you talk on the telephone with family, friends, or neighbors: 3 or more times per week How often do you get together with friends or relatives: 3 or more times per week How often do you attend jewish or hoahaoism services: never Little interest or pleasure in doing things: not at all Feeling down, depressed, or hopeless: not at all Feel stressed/tense/nervous/anxious/difficulty sleeping: not at all Do you think of yourself as: straight/heterosexual Gender Identity: female Meds Home Medications and Allergies Home Medications ?Medication ?Instructions ?Recorded ?Confirmed ?Type amoxicillin 500 mg capsule 500 mg PO QAM 12/03/24 01/03/25 History apixaban 5 mg tablet (Eliquis) 5 mg PO BID 12/03/24 01/03/25 History aspirin 81 mg tablet,delayed 81 mg PO DAILY 12/03/24 01/03/25 History release (Adult Low Dose Aspirin) atorvastatin 10 mg tablet 10 mg PO DAILY 12/03/24 01/03/25 History bisoprolol fumarate 5 mg tablet 5 mg PO QAM 12/03/24 01/03/25 History bumetanide 1 mg tablet 2 mg PO DAILY 12/03/24 01/03/25 History estradiol 0.01% (0.1 mg/gram) 1 appful vaginal .3 times a week 12/03/24 01/03/25 History vaginal cream fluocinonide 0.05 % topical cream 1 applic topical QPM 12/03/24 01/03/25 History fluticasone propionate 50 2 spray intranasal DAILY PRN 12/03/24 01/03/25 History mcg/actuation nasal allergy symptoms spray,suspension (Flonase Allergy Relief) gabapentin 100 mg capsule 100 mg PO TID 12/03/24 01/03/25 History insulin glargine 100 unit/mL 14 unit subcut QAM 12/03/24 01/03/25 History subcutaneous solution (Lantus U-100 Insulin) levothyroxine 200 mcg tablet 200 mcg PO QAM 12/03/24 01/03/25 History magnesium chloride 71.5 mg 71.5 mg PO BID 12/03/24 01/03/25 History (magnesium chloride) tablet,delayed release (Slow-Mag) mometasone-formoterol HFA 100 2 inh inhalation BID 12/03/24 01/03/25 History mcg-5 mcg/actuation aerosol inhaler (Dulera) omeprazole 40 mg capsule,delayed 40 mg PO BID 12/03/24 01/03/25 History release polyethylene glycol 3350 17 17 g PO QAM 12/03/24 01/03/25 History gram/dose oral powder (ClearLax) sennosides 8.6 mg tablet (senna) 8.6 mg PO QPM 12/03/24 01/03/25 History sitagliptin phosphate 25 mg tablet 25 mg PO DAILY 12/03/24 01/03/25 History (Januvia) spironolactone 25 mg tablet 25 mg PO QAM 12/03/24 01/03/25 History trospium 60 mg capsule,extended 60 mg PO QAM 12/03/24 01/03/25 History release 24 hr vit C 250 mg-vit E 90 mg-zinc 40 1 tab PO DAILY 12/03/24 01/03/25 History mg-copper 1 [id number] capsule (PreserVision AREDS-2) acetaminophen 325 mg capsule 650 mg PO Q6H PRN fever or pain 01/03/25 01/03/25 History azithromycin 250 mg tablet See Rx Instructions PO .COMPLEX 01/03/25 01/03/25 History benzonatate 100 mg capsule 100 mg PO TID 01/03/25 01/03/25 History ondansetron 4 mg disintegrating 4 mg PO Q6H 01/03/25 01/03/25 History tablet prednisone 50 mg tablet 50 mg PO DAILY 01/03/25 01/03/25 History promethazine 12.5 mg tablet 12.5 mg PO Q6H 01/03/25 01/03/25 History ropinirole 0.5 mg tablet 0.5 mg PO DAILY 01/03/25 01/03/25 History tramadol 50 mg tablet 25 mg PO Q6H PRN pain 01/03/25 01/03/25 History Allergies Allergy/AdvReac Type Severity Reaction Status Date / Time dapagliflozin (From [facility]) Allergy Severe Unknown Verified 12/03/24 00:20 metformin Allergy Severe Unknown Verified 12/03/24 00:20 metoprolol Allergy Severe Unknown Verified 12/03/24 00:20 Sulfa (Sulfonamide Allergy Severe Rash Verified 12/03/24 00:20 Antibiotics) Exam Constitutional Vital Signs, click to edit/add: Last Vital Signs Temp 97.9 F 01/04/25 07:22 Pulse 84 01/04/25 07:22 Resp 20 01/04/25 07:22 BP 92/63 01/04/25 07:22 Pulse Ox 96 01/04/25 07:22 O2 Del Method Nasal Cannula 01/04/25 07:22 O2 Flow Rate 1 01/04/25 07:22 Documenting provider has reviewed patient's vital signs: yes Common normals: no apparent distress, oriented x3 and alert HENMT Common normals: normocephalic Eye Common normals: PERRL and EOMs intact bilaterally Respiratory Common normals: normal respiratory effort and clear to auscultation bilaterally Cardio Common normals: regular rate, regular rhythm, no gallops, no murmurs and no rub GI Common normals: Normal to inspection, nondistended, normoactive bowel sounds present and non-tender Extremity General: edema (2+ pitting edema) Results Labs Labs: Short CBC 01/03/25 01/04/25 Range/Units 13:11 05:51 WBC 11.3 H 11.2 H (4.0-11.0) 10^3/uL Hgb 15.1 14.8 (12.0-16.0) g/dL Hct 46.7 46.2 (36.0-48.0) % Plt Count 114 L 103 L (150-450) 10^3/uL BMP 01/03/25 01/04/25 13:11 05:51 Sodium 133 L 134 L Potassium 3.8 4.8 Chloride 95 L 97 L Carbon Dioxide 28.3 27.6 BUN 61.0 H 60.0 H Creatinine 2.05 H 1.76 H Glucose 151 H 140 H Calcium 9.9 9.7 Liver Function 01/03/25 01/04/25 Range/Units 13:11 05:51 Total Bilirubin 1.7 H 1.6 H (0.2-1.0) mg/dL AST 24 36 (15-37) U/L ALT 19 16 (14-59) U/L Alkaline Phosphatase 156 H 137 H (46-116) U/L Albumin 2.7 L 2.4 L (3.4-5.0) g/dL ABG ABG results: 01/03/25 13:11 VBG pH 7.402 VBG pCO2 46.2 Assessment and Plan Assessment and Plan (1) Acute on chronic heart failure with preserved ejection fraction (HFpEF): (2) Acute hypoxic respiratory failure: (3) History of heart valve replacement: (4) SABINO (acute kidney injury): (5) Type 2 diabetes mellitus with hyperglycemia: (6) Adult hypothyroidism: (7) Chronic atrial fibrillation: (8) CKD stage 3b, GFR 30-44 ml/min: Plan Presented with fluid overload and continue IV bumex. Monitor weight. Resume home medication. Outpatient records showed echo 11/15/24 with EF 70%. Start PT/OT for weakness. Wean oxygen as tolerated. Plan on at least a 2 midnight stay for inpatient medically necessary services. Urinary Catheter Management Urinary Catheter Management Pure Wick: Cath placed during this visit: yes Urethral indwelling: Yes Reason for continuing: measure accurate output Insertion date: 01/03/25 Insertion time: 14:30
--- NOTE | 2025-01-04 09:27 | SWNOTE1 ---
SW reached out to Olivia at [facility], pt is from there skilled.
[2025-01-04 10:52] LABS: Glucometer 189 mg/dL (74-106)
--- NOTE | 2025-01-04 11:18 | SWNOTE1 ---
Important Message from Medicare reviewed and discussed with patient. Pt. verbalized understanding and signed the form. Original given to patient and copy placed in patient?s chart.
--- NOTE | 2025-01-04 11:19 | SWNOTE1 ---
SW met with pt to discuss dc needs. Pt was at [facility] to get stronger. She stated she just started not feeling well and then her legs became swollen and she just was not doing well these past few days. Pt's plan is to return to [facility] at discharge. She does not normally wear oxygen there. She does use a walker at [facility]. Pt voiced that prior to [facility] she was at there independent living or AL, but stated she has to be stronger before she could return there. At this time pt voiced no needs. SW to send updates to [facility]. updates sent to [facility] including face sheet, ED note, H&P, vitals, labs, PT/OT notes, nursing notes, and med list.
[2025-01-04] MEDS: INSULIN ASPART 300 UNIT/3 ML PEN SUBQ (12:07)
[2025-01-04] MEDS: GUAIFENESIN 200 MG/10 ML LIQUID PO ×2 (13:05→19:31)
[2025-01-04] MEDS: ACETAMINOPHEN 325 MG TABLET 650 MG PO (14:38)
[2025-01-04] MEDS: IPRATROPIUM/ALBUTEROL SULFATE 3 ML AMPUL.NEB IH (15:43)
[2025-01-04 16:33] LABS: Glucometer 122 mg/dL (74-106)
[2025-01-04 21:38] LABS: Glucometer 138 mg/dL (74-106)
[2025-01-05] VITALS (11 sets, daily range): BP systolic 82–137; BP diastolic 53–96; PULSE 60–85; TEMP 36.3–36.6; O2SAT 90–97; BMI 41.9
[2025-01-05] MEDS: GUAIFENESIN 200 MG/10 ML LIQUID PO ×3 (02:25→18:34)
[2025-01-05] MEDS: IPRATROPIUM/ALBUTEROL SULFATE 3 ML AMPUL.NEB IH ×2 (02:35→20:45)
[2025-01-05 06:57] LABS: Basophils Percent Auto 0.3 % (0.2-2.0); Eosinophils Absolute Auto 0.3 10^3/uL (0.0-0.7); Eosinophils Percent Auto 2.9 % (0.9-7.0); Hemoglobin 15.1 g/dL (12.0-16.0); Immature Granulocytes Abs Auto 0.16 10^3/uL (0.00-0.03); Immature Granulocytes Pct Auto 1.6 % (0.0-0.5); Lymphocytes Absolute Auto 1.6 10^3/uL (1.2-3.8); Mean Corpuscular HGB Conc 33.6 g/dL (29.9-35.2); Mean Corpuscular Hemoglobin 29.4 pg (26.7-34.0); Mean Corpuscular Volume 87.7 fL (81.0-99.0); Mean Platelet Volume 11.1 fL (9.5-13.5); Monocytes Absolute Auto 0.3 10^3/uL (0.3-0.8); Monocytes Percent Auto 3.3 % (1.7-12.0); Neutrophils Absolute Auto 7.4 10^3/uL (1.4-6.5); Neutrophils Percent Auto 75.9 % (43.0-75.0); Platelet Count 105 10^3/uL (150-450); Red Blood Count 5.13 10^6/uL (4.20-5.40); Red Cell Distribution Width 19.3 % (11.0-15.0); White Blood Count 9.8 10^3/uL (4.0-11.0)
[2025-01-05] MEDS: GABAPENTIN 100 MG CAPSULE PO ×3 (06:59→21:15)
[2025-01-05] MEDS: BENZONATATE 100 MG CAPSULE PO ×3 (06:59→21:15)
[2025-01-05 07:13] LABS: Alanine Aminotransferase 18 U/L (14-59); Albumin Globulin Ratio 0.6; Albumin Level 2.4 g/dL (3.4-5.0); Alkaline Phosphatase 145 U/L (46-116); Anion Gap 16.1; Aspartate Amino Transferase 27 U/L (15-37); BUN Creatinine Ratio 33.1; Bilirubin Total 1.9 mg/dL (0.2-1.0); Calcium 9.3 mg/dL (8.5-10.1); Carbon Dioxide 26.4 mmol/L (21.0-32.0); Chloride 97 mmol/L (98-107); Estimated GFR (African America 33 (>=60 mL/min/1.73m^2); Estimated GFR (Non-African Ame 28 (>=60 mL/min/1.73m^2); Globulin 3.7 g/dL; Glucose 124 mg/dL (74-106); Magnesium 2.2 mg/dL (1.8-2.4); Potassium 3.5 mmol/L (3.5-5.1); Sodium 136 mmol/L (136-145); Total Protein 6.1 g/dL (6.4-8.2)
[2025-01-05] MEDS: APIXABAN 5 MG TABLET PO ×2 (09:23→21:15)
[2025-01-05] MEDS: ACETAMINOPHEN 325 MG TABLET 650 MG PO (09:23)
[2025-01-05] MEDS: ASPIRIN 81 MG TABLET.DR PO (09:23)
[2025-01-05] MEDS: ATORVASTATIN CALCIUM 10 MG TABLET PO (09:23)
[2025-01-05] MEDS: INSULIN GLARGINE 300 UNIT/3 ML INSULN.PEN 14 UNIT SQ (09:23)
--- NOTE | 2025-01-05 10:22 | CM.NOTE ---
Rounds made with Dr. Guzman. Dr. Guzman discussed adjusting medications, repeating CXR. Marcie verbalized understanding. No discharge for today.
--- NOTE | 2025-01-05 10:23 | PM.PN ---
Progress Note: Subjective Subjective Interval history: Patient doesn't feel well this am. Continued cough and developed low BP. Edema improved. Bumex held due to low BP. Not lightheaded or dizzy. Mild SOB. No nausea and normal PO. No chest pain or palpitations. Exam Constitutional Vital Signs, click to edit/add: Last Vital Signs Temp 97.6 F 01/05/25 09:29 Pulse 78 01/05/25 09:29 Resp 22 H 01/05/25 09:29 BP 82/53 L 01/05/25 09:29 Pulse Ox 92 L 01/05/25 09:29 O2 Del Method Room Air 01/05/25 09:29 O2 Flow Rate 1 01/04/25 20:23 Documenting provider has reviewed patient's vital signs: yes Common normals: no apparent distress, oriented x3 and alert HENMT Common normals: normocephalic Eye Common normals: PERRL and EOMs intact bilaterally Respiratory Auscultation: crackles Laterality: bilateral Cardio Common normals: regular rate, regular rhythm, no gallops, no murmurs and no rub GI Common normals: Normal to inspection, nondistended, normoactive bowel sounds present and non-tender Extremity General: edema (1+ bipedal edema) Progress Note: Objective Labs Labs: Short CBC 01/05/25 Range/Units 05:43 WBC 9.8 (4.0-11.0) 10^3/uL Hgb 15.1 (12.0-16.0) g/dL Hct 45.0 (36.0-48.0) % Plt Count 105 L (150-450) 10^3/uL BMP 01/05/25 05:43 Sodium 136 Potassium 3.5 Chloride 97 L Carbon Dioxide 26.4 BUN 59.0 H Creatinine 1.78 H Glucose 124 H Calcium 9.3 Liver Function 01/05/25 Range/Units 05:43 Total Bilirubin 1.9 H (0.2-1.0) mg/dL AST 27 (15-37) U/L ALT 18 (14-59) U/L Alkaline Phosphatase 145 H (46-116) U/L Albumin 2.4 L (3.4-5.0) g/dL Progress Note: A&P Assessment and Plan (1) Acute on chronic heart failure with preserved ejection fraction (HFpEF): (2) Acute hypoxic respiratory failure: (3) History of heart valve replacement: (4) SABINO (acute kidney injury): (5) Type 2 diabetes mellitus with hyperglycemia: (6) Adult hypothyroidism: (7) Chronic atrial fibrillation: (8) CKD stage 3b, GFR 30-44 ml/min: Plan Diuresed well and edema improved. BP low and held oral bumex. Add midodrine to help BP. Resume oral bumex in am. C/o cough and repeat chest x-ray. Continue PT/OT. If stable likely discharge in next 1-2 days. Urinary Catheter Management Urinary Catheter Management Pure Wick: Cath placed during this visit: yes, but has since been removed by the nurse Urethral indwelling: Yes Insertion date: 01/04/25 Insertion time: 14:00 Removal date: 01/05/25 Removal time: 08:00
--- NOTE | 2025-01-05 10:32 | XR_ITS ---
[address] [address] Patient Name: AURELIO TURNER MRN: [id number] date: 1945 Sex: F Assigned Patient Location: [place] Current Patient Location: [place] Accession/Order Number: [id number] Exam Date: 01/05/2025 11:28 Report Date: 01/05/2025 11:29 At the request of: JUANI THOMPSON MD Procedure: XR chest 1V Single view chest: CLINICAL HISTORY: Follow-up shortness of breath. COMPARISON: None FINDINGS: Aortic valve replacement. Pacemaker device and sternotomy wires. Cardiomegaly with vascular congestion and interstitial changes similar to the prior study. No new consolidation pneumothorax pleural effusion or free air. XR/XR chest 1V IMPRESSION: CHF FINDINGS, UNCHANGED FROM THE PRIOR STUDY. Impression dictated by: Robert High Jr., D.O. 01/05/2025 11:29 AM Dictation Location: [place] [address] Electronically authenticated by: [id number] Y Date: 01/05/2025 11:29
[2025-01-05 11:11] LABS: Glucometer 148 mg/dL (74-106)
--- NOTE | 2025-01-05 11:31 | PT.DAILY ---
Physical Therapy Daily Note PT Daily Note/Assess Start: 01/05/25 11:25 Freq: Status: Active Protocol: Document 01/05/25 11:15 DEBRA (Rec: 01/05/25 11:31 DEBRA [id number]) Physical Therapy Daily Note/Assessment Time In/Time Out Time In 11:13 Time Out 11:24 Subjective Subjective Patient reports feeling awful due to coughing but is agreeable to supine exercises. Patient back in bed after sitting up in chair this morning. Therapeutic Exercise Time Therapeutic Exercise 11 Minutes (minutes) Therapeutic Exercise 1 Units Therapeutic Exercise Treatment Therapeutic Exercise Supine Exercises: Treatment QS x 10 GS x 10 AP x 10 AAROM SLR x 10 AAROM hip abd x 10 Heel slides x 8 due to increased fatigue Total Physical Therapy Time Total Therapy 11 Minutes Total Physical 1 Therapy Units Summary Daily Note Summary Patient completes x 10 supine exercises in bed, patient just got back in bed after sitting up in the chair this morning. Increased fatigue noted during exercises and post treatment, patient only completes x8 heel slides due to increased fatigue. Patient in bed with rails up, call light in reach, pumps on, and all needs met post treatment. Recommend SNF at [facility] to continue to improve endurance and B LE strength in order to return to PLOF.
[2025-01-05] MEDS: SPIRONOLACTONE 25 MG TABLET PO (11:39)
[2025-01-05] MEDS: MIDODRINE HCL 5 MG TABLET 10 MG PO ×2 (11:39→18:34)
--- NOTE | 2025-01-05 12:47 | DIETREC ---
Recommend change diet order to: 1800 kcal CCD, Heart Healthy. Continue 1500 mL fluid restriction as ordered. No supplement recommendation at this time d/t pt c/o feeling ill. [place] text to Dr. Guzman.
--- NOTE | 2025-01-05 15:18 | SWNOTE1 ---
Pt's son in room. He requested to speak with SW as he needed something notarized, pt's living will? SW met with pt and son. Pt had printed off financial power of employment law attorney paperwork that needed notarized. SW reviewed and it did state that form needed notarized for any financial institution to use. Pt had completed one awhile ago and her other son was on it, but she crossed off his name. They recently had to try to use it to move money from a CD to savings account. It took hours, but bank finally agreed. Pt is alert and oriented. WENDY spoke with Edwina in [facility] who is notary and she was able to come over and notarize form. Pt confirmed she wants her son and 2 grand-kids on form. Pt signed form and Edwina notarized. SW and pt and pt's son then had conversation about code status. WENDY confirmed from chart pt is DNRCC. SW brought paperwork that explained the differences. Pt confirmed she would like to be DNRCC. WENDY then asked if she would like to completed HCPOA for medical decisions. Pt in agreement. WENDY completed HCPOA paperwork and made copy for son and provided him with original as pt will be returning to [facility] at discharge. WENDY put copy on chart and sent copy to [facility].
--- NOTE | 2025-01-05 16:26 | SWNOTE1 ---
Updated physician notes, PT/OT, labs, vitals, and nursing notes sent to [facility].
[2025-01-05 17:05] LABS: Glucometer 113 mg/dL (74-106)
[2025-01-05 20:44] LABS: Glucometer 95 mg/dL (74-106)
[2025-01-05] MEDS: METOPROLOL TARTRATE 50 MG TABLET PO (21:15)
[2025-01-06] VITALS (8 sets, daily range): BP systolic 94–121; BP diastolic 72–86; PULSE 58–113; TEMP 36.3–36.6; O2SAT 89–94
[2025-01-06] MEDS: GABAPENTIN 100 MG CAPSULE PO ×2 (05:18→13:44)
[2025-01-06] MEDS: BENZONATATE 100 MG CAPSULE PO ×2 (05:18→13:44)
[2025-01-06] MEDS: GUAIFENESIN 200 MG/10 ML LIQUID PO (05:18)
[2025-01-06 05:59] LABS: Basophils Absolute Auto 0.1 10^3/uL (0.0-0.1); Basophils Percent Auto 0.6 % (0.2-2.0); Eosinophils Absolute Auto 0.4 10^3/uL (0.0-0.7); Eosinophils Percent Auto 3.8 % (0.9-7.0); Hematocrit 46.9 % (36.0-48.0); Hemoglobin 15.4 g/dL (12.0-16.0); Immature Granulocytes Abs Auto 0.35 10^3/uL (0.00-0.03); Immature Granulocytes Pct Auto 3.4 % (0.0-0.5); Lymphocytes Absolute Auto 1.9 10^3/uL (1.2-3.8); Lymphocytes Percent Auto 18.6 % (20.5-60.0); Mean Corpuscular HGB Conc 32.8 g/dL (29.9-35.2); Mean Corpuscular Hemoglobin 28.4 pg (26.7-34.0); Mean Corpuscular Volume 86.4 fL (81.0-99.0); Mean Platelet Volume 12.4 fL (9.5-13.5); Monocytes Absolute Auto 0.3 10^3/uL (0.3-0.8); Monocytes Percent Auto 3.2 % (1.7-12.0); Neutrophils Absolute Auto 7.3 10^3/uL (1.4-6.5); Neutrophils Percent Auto 70.4 % (43.0-75.0); Platelet Count 127 10^3/uL (150-450); Red Blood Count 5.43 10^6/uL (4.20-5.40); Red Cell Distribution Width 19.9 % (11.0-15.0); White Blood Count 10.3 10^3/uL (4.0-11.0)
[2025-01-06 06:15] LABS: Alanine Aminotransferase 67 U/L (14-59); Albumin Globulin Ratio 0.6; Albumin Level 2.2 g/dL (3.4-5.0); Alkaline Phosphatase 175 U/L (46-116); Anion Gap 15.6; Aspartate Amino Transferase 129 U/L (15-37); BUN Creatinine Ratio 34.5; Bilirubin Total 2.3 mg/dL (0.2-1.0); Carbon Dioxide 25.2 mmol/L (21.0-32.0); Chloride 98 mmol/L (98-107); Estimated GFR (African America 37 (>=60 mL/min/1.73m^2); Estimated GFR (Non-African Ame 30 (>=60 mL/min/1.73m^2); Globulin 3.6 g/dL; Glucose 73 mg/dL (74-106); Potassium 3.8 mmol/L (3.5-5.1); Sodium 135 mmol/L (136-145); Total Protein 5.8 g/dL (6.4-8.2)
[2025-01-06] MEDS: MIDODRINE HCL 5 MG TABLET 10 MG PO ×2 (08:59→12:17)
[2025-01-06] MEDS: APIXABAN 5 MG TABLET PO (08:59)
[2025-01-06] MEDS: BUMETANIDE 1 MG TABLET 2 MG PO (08:59)
[2025-01-06] MEDS: ASPIRIN 81 MG TABLET.DR PO (08:59)
[2025-01-06] MEDS: ATORVASTATIN CALCIUM 10 MG TABLET PO (08:59)
[2025-01-06] MEDS: SPIRONOLACTONE 25 MG TABLET PO (08:59)
--- NOTE | 2025-01-06 10:45 | CM.NOTE ---
Rounds made with Dr. Guzman, pt will discharge today to [facility] for skilled therapy.
--- NOTE | 2025-01-06 10:59 | CM.NOTE ---
2nd Important Message From Medicare discussed with pt, pt denies questions or concerns.
[2025-01-06 11:06] LABS: Glucometer 112 mg/dL (74-106)
--- NOTE | 2025-01-06 11:32 | PM.DS1 ---
DS: Providers Provider Date of admission: 01/04/25 09:15 Primary care physician: MARCELLE CASEY DO Consults: 01/04/25 09:16 Occupational Therapy Eval and Treat Routine Reason for consultation: Weakness Physical Therapy Eval and Treat Routine Reason for consultation: Weakness DS: Diagnosis Discharge Diagnosis (1) Acute on chronic heart failure with preserved ejection fraction (HFpEF): (2) Acute hypoxic respiratory failure: (3) History of heart valve replacement: (4) SABINO (acute kidney injury): (5) Type 2 diabetes mellitus with hyperglycemia: (6) Adult hypothyroidism: (7) Chronic atrial fibrillation: (8) CKD stage 3b, GFR 30-44 ml/min: DS: Summary Status at Discharge Cognitive/behavioral status at discharge: Reason for admission: See H&P for details. 79 y/o female from SNF with SOB. History of afib and CHF and c/o worsening SOB over past few days. Increased leg edema. SOB with exertion and increased weakness. Chest tight and hard to take deep breath. To ER and BNP elevated. Chest x-ray with evidence of fluid overload. Given IV lasix and admitted. Hospital course: Started IV bumex. Noted hypoxia with SpO2 88% on room air and added supplemental oxygen. Improved and less SOB. C/o pain in abdomen from coughing. BP decreased and had to hold Bumex. Good urine output and edema improved. Repeat chest x-ray stable. Added midodrine for low BP. Continued PT/OT. Improved and BP stable. More alert and fatigue improved. Transferred to SNF in stable condition. Resume home medication as directed and will continue midodrine for low BP. Time Spent with Patient Time attestation: Total time spent providing and/or coordinating discharge services: Time spent: greater than 30 minutes Exam Constitutional Vital Signs, click to edit/add: Last Vital Signs Temp 97.3 F L 01/06/25 11:25 Pulse 64 01/06/25 11:25 Resp 18 01/06/25 11:25 BP 106/73 01/06/25 11:25 Pulse Ox 93 L 01/06/25 11:25 O2 Del Method Room Air 01/06/25 11:25 O2 Flow Rate 1 01/04/25 20:23 Documenting provider has reviewed patient's vital signs: yes Common normals: no apparent distress, oriented x3 and alert HENMT Common normals: normocephalic Eye Common normals: PERRL and EOMs intact bilaterally Respiratory Common normals: normal respiratory effort and clear to auscultation bilaterally Cardio Common normals: regular rate, regular rhythm, no gallops, no murmurs and no rub GI Common normals: Normal to inspection, nondistended, normoactive bowel sounds present and non-tender Extremity General: edema (1+ bipedal edema) DS: Data Data Completed and Pending Labs on day of discharge: Labs from last 24 hours 01/06/25 01/06/25 01/05/25 11:04 05:50 20:33 WBC 10.3 RBC 5.43 H Hgb 15.4 Hct 46.9 MCV 86.4 MCH 28.4 MCHC 32.8 RDW 19.9 H Plt Count 127 L MPV 12.4 Neut % (Auto) 70.4 Lymph % (Auto) 18.6 L [place] % (Auto) 3.2 Eos % (Auto) 3.8 Baso % (Auto) 0.6 Neut # (Auto) 7.3 H Lymph # (Auto) 1.9 [place] # (Auto) 0.3 Eos # (Auto) 0.4 Baso # (Auto) 0.1 Abs Immat Gran (auto) 0.35 H Imm/Tot Granulo (auto) 3.4 H Sodium 135 L Potassium 3.8 Chloride 98 Carbon Dioxide 25.2 Anion Gap 15.6 BUN 57.0 H Creatinine 1.65 H Est GFR ( Amer) 37 L Est GFR (Non-Af Amer) 30 L BUN/Creatinine Ratio 34.5 Glucose 73 L Calcium 9.0 Magnesium 2.0 Total Bilirubin 2.3 H AST 129 H ALT 67 H Alkaline Phosphatase 175 H Total Protein 5.8 L Albumin 2.2 L Globulin 3.6 Albumin/Globulin Ratio 0.6 POC Glucose 112 H 95 01/05/25 16:37 WBC RBC Hgb Hct MCV MCH MCHC RDW Plt Count MPV Neut % (Auto) Lymph % (Auto) [place] % (Auto) Eos % (Auto) Baso % (Auto) Neut # (Auto) Lymph # (Auto) [place] # (Auto) Eos # (Auto) Baso # (Auto) Abs Immat Gran (auto) Imm/Tot Granulo (auto) Sodium Potassium Chloride Carbon Dioxide Anion Gap BUN Creatinine Est GFR ( Amer) Est GFR (Non-Af Amer) BUN/Creatinine Ratio Glucose Calcium Magnesium Total Bilirubin AST ALT Alkaline Phosphatase Total Protein Albumin Globulin Albumin/Globulin Ratio POC Glucose 113 H Preliminary micro results at discharge 01/03/25 13:18 Blood Culture Result 2 - Preliminary Blood 01/03/25 13:11 Blood Culture Result 1 - Preliminary Blood NO GROWTH AT 36-48 HOURS. FINAL TO FOLLOW. Discharge Plan Discharge Disposition: Xfer SNF Condition: Fair Discharge Medications: New lorazepam 0.5 mg Tablet 0.5 mg PO TID PRN (Reason: Anxiety) 5 Days Qty: 15 0RF midodrine 5 mg Tablet 10 mg PO TIDWM Qty: 90 0RF Continued benzonatate 100 mg capsule 100 mg PO TID ropinirole 0.5 mg tablet 0.5 mg PO DAILY ondansetron 4 mg tablet,disintegrating 4 mg PO Q6H acetaminophen 325 mg capsule 650 mg PO Q6H PRN (Reason: fever or pain) azithromycin 250 mg tablet See Rx Instructions .ROUTE .COMPLEX Rx Instructions: For 250 mg dose pack: take 500 mg today (day 1), then 250 mg for 4 days (days 2-5) prednisone 50 mg tablet 50 mg PO DAILY promethazine 12.5 mg tablet 12.5 mg PO Q6H tramadol 50 mg tablet 25 mg PO Q6H PRN (Reason: pain) 5 Days Qty: 10 0RF amoxicillin 500 mg capsule 500 mg PO QAM Eliquis 5 mg tablet 5 mg PO BID atorvastatin 10 mg tablet 10 mg PO DAILY aspirin [Adult Low Dose Aspirin] 81 mg tablet,delayed release (DR/EC) 81 mg PO DAILY bisoprolol fumarate 5 mg tablet 5 mg PO QAM bumetanide 1 mg tablet 2 mg PO DAILY Dulera 100-5 mcg/actuation HFA aerosol inhaler 2 inh inhalation BID estradiol 0.01 % (0.1 mg/gram) cream 1 appful VAGINAL .3 times a week gabapentin 100 mg capsule 100 mg PO TID levothyroxine 200 mcg tablet 200 mcg PO QAM omeprazole 40 mg capsule,delayed release(DR/EC) 40 mg PO BID spironolactone 25 mg tablet 25 mg PO QAM trospium 60 mg capsule,extended release 24hr 60 mg PO QAM Januvia 25 mg tablet 25 mg PO DAILY sennosides [senna] 8.6 mg tablet 8.6 mg PO QPM polyethylene glycol 3350 [ClearLax] 17 gram/dose powder 17 g PO QAM insulin glargine [Lantus U-100 Insulin] 100 unit/mL solution 14 unit subcut QAM fluocinonide 0.05 % cream 1 applic topical QPM fluticasone propionate [Flonase Allergy Relief] 50 mcg/actuation spray,suspension 2 spray intranasal DAILY PRN (Reason: allergy symptoms) Rx Instructions: administer into each nostril PreserVision AREDS-2 250-90-40-1 mg capsule 1 tab PO DAILY Slow-Mag 71.5 mg tablet,delayed release (DR/EC) 71.5 mg PO BID Print Language: Yi Forms: Portal Instructions
--- NOTE | 2025-01-06 11:56 | SWNOTE1 ---
Pt is stable for discharge today. SW to set up discharge.
--- NOTE | 2025-01-06 13:17 | SWNOTE1 ---
WENDY called and set up [facility] for 2;00pm. Pt is returning to [facility]. WENDY faxed dc med rec and dc summary to [facility]. WENDY left message for pt's son with time. WENDY notified nurse and [facility] with time.
--- NOTE | 2025-01-06 13:23 | OT.DAILY ---
Occupational Therapy Daily Note OT Inpatient Daily Visit Note Start: 01/04/25 10:06 Freq: Status: Active Protocol: Document 01/06/25 13:21 [id number] (Rec: 01/06/25 13:23 [id number]) Visit Not Completed Visit Not Completed Visit Not Completed Nursing request to hold Due to: Other Reason Visit Nursing request to hold therapy session at this time, Not Completed preparing Pt for discharge to SNF. OT Visit Details Time In/Time Out Time In 13:15 Time Out 13:16 GG. Functional Abilities and Goals-Complete for Swing Bed Patients Only [id number]. Self-Care [id number]. Mobility
--- NOTE | 2025-01-06 13:41 | PC.NURSE ---
Report called to Sabine Rojo. Transport set for 2 pm
== END 2025-01-06 14:08 | DRG 291 ==
LOC: ER 18:26 → MS 01-04 06:59
PROVIDERS: Registered Nurse; Admitting Provider Family Medicine; Emergency Provider Emergency Medicine; PCP Family Medicine; Visit Provider Family Medicine
DX: I13.0 Hypertensive heart and chronic kidney disease with heart failure and stage 1 through stage 4 chronic kidney disease, or unspecified chronic kidney disease (principal); I50.33 Acute on chronic diastolic (congestive) heart failure; J96.01 Acute respiratory failure with hypoxia; N17.9 Acute kidney failure, unspecified; I48.20 Chronic atrial fibrillation, unspecified; N18.32 Chronic kidney disease, stage 3b; E11.22 Type 2 diabetes mellitus with diabetic chronic kidney disease; E11.65 Type 2 diabetes mellitus with hyperglycemia; Z95.2 Presence of prosthetic heart valve; E03.9 Hypothyroidism, unspecified; K21.9 Gastro-esophageal reflux disease without esophagitis; F41.9 Anxiety disorder, unspecified; F32.A Depression, unspecified; J45.909 Unspecified asthma, uncomplicated; G47.30 Sleep apnea, unspecified; I27.20 Pulmonary hypertension, unspecified; Z95.0 Presence of cardiac pacemaker; Z79.82 Long term (current) use of aspirin; Z79.899 Other long term (current) drug therapy; Z79.4 Long term (current) use of insulin; Z79.890 Hormone replacement therapy; R03.1 Nonspecific low blood-pressure reading; Z79.01 Long term (current) use of anticoagulants; Z66 Do not resuscitate
CPT/HCPCS: 36415; 71045; 80053; 82800; 82947; 82948; 83605; 83735; 83880; 84439; 84443; 84484; 85025; 85610; 85730; 86140; 87040; 93005; 94640; 94667; 94668; 94761; 96374; 96375; 97110; 97161; 97165; 97530; 99285; G0378; J1938

== ENCOUNTER 2025-01-06 22:38 | Inpatient (IN) | payer MEDICARE, SELFPAY ==
[2025-01-06] VITALS (11 sets, daily range): BP systolic 80–126; BP diastolic 40–59; PULSE 54–86; TEMP 36.2; O2SAT 97–100
--- NOTE | 2025-01-06 23:15 | ECG_ITS ---
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 Measurements Intervals [place] Rate: 84 P: 68 SD: 176 QRS: 185 QRSD: 116 T: 64 QT: 442 QTc: 483 Interpretive Statements 1100 Sinus rhythm 1474 with frequent supraventricular premature complexes [address] depression 5130 Right ventricular hypertrophy 8304 Long QTc interval 9150 abnormal ECG Compared to ECG 01/04/2025 05:06:51 ST (T wave) deviation now present Right ventricular hypertrophy now present Atrial-paced complex(es) or rhythm no longer present Left ventricular hypertrophy no longer present Myocardial infarct finding no longer present T-wave abnormality no longer present Electronically Signed On 01-07-2025 6:44:04 EDT by STEVE PENA M.D.
--- NOTE | 2025-01-06 23:30 | ED.URI1 ---
HPI - URI/Sore Throat General Chief Complaint: Upper Respiratory Infection Stated Complaint: other Time Seen by Provider: 01/06/25 23:09 Source: patient History of Present Illness HPI Narrative: presents from halfway complaining of shortness of breath. Denies abdominal or chest pain. Discharged home from hospital yesterday after admission for CHF. Denies fever, nausea or pain. States she just can't breathe. breathing is labored despite wearing 02. she has past history of hypotension that has been treated with midodrine. Denies past history of COPD. she is [facility] Related Data Home Medications ?Medication ?Instructions ?Recorded ?Confirmed amoxicillin 500 mg capsule 500 mg PO QAM 12/03/24 01/07/25 apixaban 5 mg tablet (Eliquis) 5 mg PO BID 12/03/24 01/07/25 aspirin 81 mg tablet,delayed 81 mg PO DAILY 12/03/24 01/07/25 release (Adult Low Dose Aspirin) atorvastatin 10 mg tablet 10 mg PO DAILY 12/03/24 01/07/25 bisoprolol fumarate 5 mg tablet 5 mg PO QAM 12/03/24 01/07/25 bumetanide 1 mg tablet 2 mg PO DAILY 12/03/24 01/07/25 estradiol 0.01% (0.1 mg/gram) 1 appful vaginal .3 times a week 12/03/24 01/07/25 vaginal cream fluocinonide 0.05 % topical cream 1 applic topical QPM 12/03/24 01/07/25 fluticasone propionate 50 2 spray intranasal DAILY PRN 12/03/24 01/07/25 mcg/actuation nasal allergy symptoms spray,suspension (Flonase Allergy Relief) gabapentin 100 mg capsule 100 mg PO TID 12/03/24 01/07/25 insulin glargine 100 unit/mL 14 unit subcut QAM 12/03/24 01/07/25 subcutaneous solution (Lantus U-100 Insulin) levothyroxine 200 mcg tablet 200 mcg PO QAM 12/03/24 01/07/25 magnesium chloride 71.5 mg 71.5 mg PO BID 12/03/24 01/07/25 (magnesium chloride) tablet,delayed release (Slow-Mag) mometasone-formoterol HFA 100 2 inh inhalation BID 12/03/24 01/07/25 mcg-5 mcg/actuation aerosol inhaler (Dulera) omeprazole 40 mg capsule,delayed 40 mg PO BID 12/03/24 01/07/25 release polyethylene glycol 3350 17 17 g PO QAM 12/03/24 01/07/25 gram/dose oral powder (ClearLax) sennosides 8.6 mg tablet (senna) 8.6 mg PO QPM 12/03/24 01/07/25 spironolactone 25 mg tablet 25 mg PO QAM 12/03/24 01/07/25 trospium 60 mg capsule,extended 60 mg PO QAM 12/03/24 01/07/25 release 24 hr vit C 250 mg-vit E 90 mg-zinc 40 1 tab PO DAILY 12/03/24 01/07/25 mg-copper 1 of-prcxag-jeayik capsule (PreserVision AREDS-2) acetaminophen 325 mg capsule 650 mg PO Q6H PRN fever or pain 01/03/25 01/07/25 benzonatate 100 mg capsule 100 mg PO TID PRN cough 01/03/25 01/07/25 ondansetron 4 mg disintegrating 4 mg PO Q6H PRN nausea and vomiting 01/03/25 01/07/25 tablet prednisone 50 mg tablet 50 mg PO DAILY 01/03/25 01/07/25 promethazine 12.5 mg tablet 12.5 mg PO Q6H 01/03/25 01/07/25 ropinirole 0.5 mg tablet 0.5 mg PO DAILY 01/03/25 01/07/25 albuterol sulfate 2.5 mg/3 mL 1.25 mg inhalation Q6H PRN 01/07/25 01/07/25 (0.083 %) solution for nebulization shortness of breath or wheezing insulin lispro 100 unit/mL 1 sliding scale dose subcut HS 01/07/25 01/07/25 subcutaneous pen (Humalog KwikPen (U-100) Insulin) insulin lispro 100 unit/mL 1 sliding scale dose subcut TID 01/07/25 01/07/25 subcutaneous solution (Admelog U-100 Insulin lispro) Previous Rx's ?Medication ?Instructions ?Recorded lorazepam 0.5 mg tablet 0.5 mg PO TID PRN Anxiety 5 days 04/30/25 #15 tabs midodrine 5 mg tablet 10 mg (2 x 5 mg) PO TIDWM #90 tabs 01/06/25 tramadol 50 mg tablet 25 mg (1/2 x 50 mg) PO Q6H PRN 01/06/25 pain 5 days #10 tabs Allergies Allergy/AdvReac Type Severity Reaction Status Date / Time dapagliflozin (From [facility]) Allergy Severe Unknown Verified 01/06/25 22:44 metformin Allergy Severe Unknown Verified 01/06/25 22:44 metoprolol Allergy Severe Unknown Verified 01/06/25 22:44 Sulfa (Sulfonamide Allergy Severe Rash Verified 01/06/25 22:44 Antibiotics) Review of Systems ROS Status of ROS 10 or more systems reviewed and unremarkable except as noted in history and below [facility] Medical History (Updated 01/07/25 @ 02:36 by Dallas Reece MD) Abdominal pain ?R10.9 - Unspecified abdominal pain (ICD-10) Chronic kidney disease (CKD) ?N18.9 - Chronic kidney disease, unspecified (ICD-10) Congestive heart failure ?I50.9 - Heart failure, unspecified (ICD-10) Type 2 diabetes mellitus ?E11.9 - Type 2 diabetes mellitus without complications (ICD-10) Osteoarthritis ?M19.90 - Unspecified osteoarthritis, unspecified site (ICD-10) Acute constipation ?K59.00 - Constipation, unspecified (ICD-10) GERD (gastroesophageal reflux disease) ?K21.9 - Gastro-esophageal reflux disease without esophagitis (ICD-10) Weakness ?R53.1 - Weakness (ICD-10) Diarrhea ?R19.7 - Diarrhea, unspecified (ICD-10) Lymphedema ?I89.0 - Lymphedema, not elsewhere classified (ICD-10) Anxiety ?F41.9 - Anxiety disorder, unspecified (ICD-10) Depression ?F32.A - Depression, unspecified (ICD-10) Hypothyroidism ?E03.9 - Hypothyroidism, unspecified (ICD-10) Asthma ?J45.909 - Unspecified asthma, uncomplicated (ICD-10) Diverticul disease small and large intestine, no perforati or abscess ?K57.50 - Diverticulosis of both small and large intestine without perforation or abscess without bleeding (ICD-10) Sleep apnea ?G47.30 - Sleep apnea, unspecified (ICD-10) Anemia ?D64.9 - Anemia, unspecified (ICD-10) Pulmonary hypertension ?I27.20 - Pulmonary hypertension, unspecified (ICD-10) Atrial fibrillation ?I48.91 - Unspecified atrial fibrillation (ICD-10) CHF (congestive heart failure) ?I50.9 - Heart failure, unspecified (ICD-10) Hypertensive cardiovascular disease ?I11.9 - Hypertensive heart disease without heart failure (ICD-10) Gastroenteritis ?K52.9 - Noninfective gastroenteritis and colitis, unspecified (ICD-10) Surgical History Pacemaker ?Z95.0 - Presence of cardiac pacemaker (ICD-10) Family History Mother Family history of CHF (congestive heart failure) Family history of cancer Family history of diabetes mellitus Family history of hypertension Family history of stroke Father Family history of CHF (congestive heart failure) Family history of cancer Family history of hypertension Family history of stroke Social History Within the past year, how often did you have a drink containing alcohol: never Score interpretation: A score less than 3 is consistent with normal alcohol consumption. Smoking status: Never smoker Non-prescribed substance use: denies use Previous occupational history: rertired Highest level of school completed/degree received: some college, no degree Are you now , , , , never or living with a partner: In a typical week, how many times do you talk on the telephone with family, friends, or neighbors: 3 or more times per week How often do you get together with friends or relatives: 3 or more times per week How often do you attend religious or caodaism services: never Little interest or pleasure in doing things: not at all Feeling down, depressed, or hopeless: not at all Feel stressed/tense/nervous/anxious/difficulty sleeping: not at all Do you think of yourself as: straight/heterosexual Gender Identity: female Exam Constitutional Vital Signs, click to edit/add: Last Vital Signs Temp 97.9 F 01/07/25 03:43 Pulse 77 01/07/25 04:00 Resp 20 01/07/25 03:53 BP 86/63 L 01/07/25 05:03 Pulse Ox 98 01/07/25 03:43 O2 Del Method Nasal Cannula 01/07/25 03:43 O2 Flow Rate 2 01/07/25 03:43 Common normals: alert and well nourished Other: mild resp distress HENMT Common normals: normocephalic and head/scalp atraumatic Respiratory Effort & inspection: labored Other: fine crackles bilat. end expiratory wheeze Cardio Common normals: regular rate, regular rhythm, S1 normal heart sound and S2 normal heart sound GI Common normals: Normal to inspection, nondistended, normoactive bowel sounds present and soft to palpation Extremity Other: trace edema at ankles Neuro Common normals: CN's II-XII intact bilaterally and moves all extremities Psych Appearance: grossly normal Course Vital Signs Vital signs: Vital Signs Temperature 97.1 F L 01/06/25 22:39 Pulse Rate 54 L 01/06/25 22:39 Respiratory Rate 20 01/06/25 22:39 Blood Pressure 80/40 L 01/06/25 22:39 Pulse Oximetry 100 01/06/25 22:39 Oxygen Delivery Method Nasal Cannula 01/06/25 22:39 Oxygen Delivery Flow Rate 2 01/06/25 22:39 Temperature 97.9 F 01/07/25 03:43 Pulse Rate 77 01/07/25 04:00 Respiratory Rate 20 01/07/25 03:53 Blood Pressure 86/63 L 01/07/25 05:03 Pulse Oximetry 98 01/07/25 03:43 Oxygen Delivery Method Nasal Cannula 01/07/25 03:43 Oxygen Delivery Flow Rate 2 01/07/25 03:43 MDM - URI/Sore Throat MDM Narrative Medical decision making narrative: patient with recent hospitalization for CHF returns with labored breathing. Denies any pain of her chest or abdomen. cxray with vascular congestion. No infiltrate. Treated in the ED with lasix, Duoneb and solumedrol. this was helpful. She was now short of breath when changing position in bed but no longer labored. Labs with elevated troponin at 66. repeat troponin unchanged. acute kidney injury similar to her last admission. Also found to have acute elevation in liver enzymes ? etiology and UA suggestive of UTI. Rocephin ordered and patient accepted for admission by hospitalist service Lab Data Labs: Lab Results 01/06/25 01/07/25 01/07/25 Range/Units 22:54 01:35 01:44 WBC 13.0 H (4.0-11.0) 10^3/uL RBC 5.92 H (4.20-5.40) 10^6/uL Hgb 17.2 H (12.0-16.0) g/dL Hct 50.8 H (36.0-48.0) % MCV 85.8 (81.0-99.0) fL MCH 29.1 (26.7-34.0) pg MCHC 33.9 (29.9-35.2) g/dL RDW 20.0 H (11.0-15.0) % Plt Count 142 L (150-450) 10^3/uL MPV 12.0 (9.5-13.5) fL Seg Neuts % (Manual) 86.0 H (43.0-75.0) Lymphocytes % (Manual) 9.0 L (20.5-60.0) % Atypical Lymphs % (Man) 3.0 % Monocytes % (Manual) 2.0 (1.7-12.0) % Eosinophils % (Manual) 0.0 L (0.9-7.0) % Basophils % (Manual) 0.0 L (0.2-2.0) % Neutrophils # (Manual) 11.18 H (1.4-6.5) 10^3/uL Lymphocytes # (Manual) 1.17 L (1.20-3.80) 10^3/uL Abs Atypical Lymphs Man 0.39 Monocytes # (Manual) 0.26 L (0.30-0.80) 10^3/uL Eosinophils # (Manual) 0.00 (0.00-0.70) 10^3/uL Basophils # (Manual) 0.00 (0.00-0.10) 10^3/uL Sodium 135 L (136-145) mmol/L Potassium 4.6 (3.5-5.1) mmol/L Chloride 97 L (98-107) mmol/L Carbon Dioxide 22.1 (21.0-32.0) mmol/L Anion Gap 20.5 BUN 62.0 H (7.0-18.0) mg/dL Creatinine 2.17 H (0.55-1.02) mg/dL Est GFR ( Amer) 27 L (>=60 mL/min/1.73m^2) Est GFR (Non-Af Amer) 22 L (>=60 mL/min/1.73m^2) BUN/Creatinine Ratio 28.6 Glucose 71 L (74-106) mg/dL Calcium 9.5 (8.5-10.1) mg/dL Total Bilirubin 3.3 H (0.2-1.0) mg/dL AST 979 H* (15-37) U/L ALT 488 H (14-59) U/L Alkaline Phosphatase 276 H (46-116) U/L Troponin I High Sens 66.3 H* 66.8 H* (4.0-51.3) pg/mL NT-Pro-B Natriuret Pep >03992.0 H* (<=1800.0) pg/mL Total Protein 6.5 (6.4-8.2) g/dL Albumin 2.5 L (3.4-5.0) g/dL Globulin 4.0 g/dL Albumin/Globulin Ratio 0.6 Urine Color Lt. yellow (YELLOW) Urine Clarity Clear (CLEAR) Urine pH 6.0 (5.0-9.0) Ur Specific [place] 1.010 (1.005-1.025) Urine Protein Trace (NEG/TRACE) mg/dL Urine Glucose (UA) Negative (NEGATIVE) mg/dL Urine Ketones Negative (NEGATIVE) mg/dL Urine Occult Blood Trace-i (NEGATIVE) Urine Nitrite Negative (NEGATIVE) Urine Bilirubin Negative (NEGATIVE) Urine Urobilinogen 1.0 (0.2-1.0) EU/dL Ur Leukocyte Esterase Large A (NEGATIVE) Urine RBC 0-2 (0-2) #/HPF Urine WBC 10-20 A (NONE SEEN) #/HPF Ur Squamous Epith Cells Few A (NONE/RARE) #/LPF Ur Transition Epith Cell Few A (NONE SEEN) #/LPF Urine Crystals None seen (None Seen) #/HPF Urine Bacteria Moderate A (NONE SEEN) #/HPF Urine Casts None seen (NONE SEEN) #/LPF Urine Mucus None seen (NONE SEEN) Urine Yeast Seen A (NONE SEEN) Ur Culture Indicated? Yes-[facility] [place] Discharge Plan Discharge Chief Complaint: Upper Respiratory Infection Clinical Impression: SABINO (acute kidney injury), CHF (congestive heart failure), Hypotension, Acute UTI (urinary tract infection), Elevated troponin Patient Disposition: Admitted As Inpatient Discharge Date/Time: 01/07/25 03:15
[2025-01-06 23:38] LABS: Hematocrit 50.8 % (36.0-48.0); Hemoglobin 17.2 g/dL (12.0-16.0); Mean Corpuscular HGB Conc 33.9 g/dL (29.9-35.2); Mean Corpuscular Hemoglobin 29.1 pg (26.7-34.0); Mean Corpuscular Volume 85.8 fL (81.0-99.0); Platelet Count 142 10^3/uL (150-450); Red Blood Count 5.92 10^6/uL (4.20-5.40)
[2025-01-06 23:50] LABS: Lymphocytes Absolute Manual 1.17 10^3/uL (1.20-3.80); Monocytes Absolute Manual 0.26 10^3/uL (0.30-0.80); Segmented Neut Absolute Manual 11.18 10^3/uL (1.4-6.5)
[2025-01-06 23:51] LABS: Atypical Lymphocytes Abs Man 0.39
[2025-01-06 23:54] LABS: Anion Gap 20.5
[2025-01-07] VITALS (34 sets, daily range): BP systolic 81–92; BP diastolic 42–67; PULSE 49–95; TEMP 36.2–36.6; O2SAT 85–99; BMI 41.2
[2025-01-07 00:01] LABS: Alanine Aminotransferase 488 U/L (14-59); Albumin Globulin Ratio 0.6; Albumin Level 2.5 g/dL (3.4-5.0); Alkaline Phosphatase 276 U/L (46-116); BUN Creatinine Ratio 28.6; Bilirubin Total 3.3 mg/dL (0.2-1.0); Calcium 9.5 mg/dL (8.5-10.1); Carbon Dioxide 22.1 mmol/L (21.0-32.0); Chloride 97 mmol/L (98-107); Estimated GFR (African America 27 (>=60 mL/min/1.73m^2); Estimated GFR (Non-African Ame 22 (>=60 mL/min/1.73m^2); Glucose 71 mg/dL (74-106); Potassium 4.6 mmol/L (3.5-5.1); Sodium 135 mmol/L (136-145); Total Protein 6.5 g/dL (6.4-8.2)
[2025-01-07 00:02] LABS: Aspartate Amino Transferase 979 U/L (15-37); NT Pro B Type Natriuretic Pept >35000.0 pg/mL (<=1800.0); Troponin I High Sensitivity 66.3 pg/mL (4.0-51.3)
[2025-01-07] MEDS: IPRATROPIUM/ALBUTEROL SULFATE 3 ML AMPUL.NEB IH (00:02)
[2025-01-07] MEDS: METHYLPREDNISOLONE SOD SUCC PF 125 MG/2 ML VIAL IVP (01:31)
[2025-01-07] MEDS: FUROSEMIDE 40 MG/4 ML VIAL IVP (01:31)
[2025-01-07 01:51] LABS: Bilirubin Urine NEGATIVE (NEGATIVE); Blood Urine TRACE-I (NEGATIVE); Clarity Urine CLEAR (CLEAR); Color Urine LT. YELLOW (YELLOW); Glucose Urine UA NEGATIVE (NEGATIVE); Ketones Urine NEGATIVE (NEGATIVE); Leukocyte Esterase Urine LARGE (NEGATIVE); Nitrite Urine NEGATIVE (NEGATIVE); Protein Urine TRACE mg/dL (NEG/TRACE)
[2025-01-07 01:58] LABS: RBC Urine 0-2 #/HPF (0-2)
[2025-01-07 01:59] LABS: Bacteria Urine MODERATE #/HPF (NONE SEEN); Cast Seen? NONE SEEN #/LPF (NONE SEEN); Crystals Seen? None Seen #/HPF (None Seen); Mucus Urine NONE SEEN (NONE SEEN); Squamous Epithelial Cell Urine FEW #/LPF (NONE/RARE); Transitional Epi Cells Urine FEW #/LPF (NONE SEEN); Urine Culture Indicated YES-FRMC
[2025-01-07 02:08] LABS: Troponin I High Sensitivity 66.8 pg/mL (4.0-51.3)
[2025-01-07] MEDS: CEFTRIAXONE 1,000 MG in 0.9 % SODIUM CHLORIDE 50 ML 100 MG IV (03:15)
[2025-01-07 05:16] LABS: PCO2 VBG 25.8 mmHg (40.0-52.0); pH VBG 7.446 (7.330-7.430)
[2025-01-07 05:17] LABS: Basophils Absolute Auto 0.1 10^3/uL (0.0-0.1); Basophils Percent Auto 0.5 % (0.2-2.0); Hematocrit 47.1 % (36.0-48.0); Hemoglobin 15.6 g/dL (12.0-16.0); Immature Granulocytes Abs Auto 0.64 10^3/uL (0.00-0.03); Lymphocytes Absolute Auto 0.9 10^3/uL (1.2-3.8); Lymphocytes Percent Auto 5.6 % (20.5-60.0); Mean Corpuscular HGB Conc 33.1 g/dL (29.9-35.2); Mean Corpuscular Hemoglobin 28.7 pg (26.7-34.0); Mean Corpuscular Volume 86.7 fL (81.0-99.0); Mean Platelet Volume 11.1 fL (9.5-13.5); Monocytes Absolute Auto 0.2 10^3/uL (0.3-0.8); Monocytes Percent Auto 1.4 % (1.7-12.0); Neutrophils Absolute Auto 14.3 10^3/uL (1.4-6.5); Neutrophils Percent Auto 88.5 % (43.0-75.0); Platelet Count 115 10^3/uL (150-450); Red Blood Count 5.43 10^6/uL (4.20-5.40); White Blood Count 16.2 10^3/uL (4.0-11.0)
[2025-01-07 05:42] LABS: Albumin Globulin Ratio 0.6; Albumin Level 2.3 g/dL (3.4-5.0); Alkaline Phosphatase 278 U/L (46-116); Anion Gap 19.6; BUN Creatinine Ratio 25.3; Bilirubin Total 3.2 mg/dL (0.2-1.0); Calcium 9.3 mg/dL (8.5-10.1); Chloride 98 mmol/L (98-107); Estimated GFR (African America 22 (>=60 mL/min/1.73m^2); Estimated GFR (Non-African Ame 18 (>=60 mL/min/1.73m^2); Globulin 3.6 g/dL; Glucose 89 mg/dL (74-106); Magnesium 2.1 mg/dL (1.8-2.4); Potassium 4.6 mmol/L (3.5-5.1); Sodium 134 mmol/L (136-145); Total Protein 5.9 g/dL (6.4-8.2)
[2025-01-07 06:06] LABS: Alanine Aminotransferase 642 U/L (14-59); Aspartate Amino Transferase 1441 U/L (15-37)
[2025-01-07 06:07] LABS: Troponin I High Sensitivity 66.1 pg/mL (4.0-51.3)
[2025-01-07 08:06] LABS: Glucometer 112 mg/dL (74-106)
[2025-01-07] MEDS: LEVOTHYROXINE SODIUM 100 MCG TABLET 200 MCG PO (08:42)
[2025-01-07] MEDS: BUMETANIDE 1 MG/4 ML VIAL IVP (08:42)
[2025-01-07] MEDS: PANTOPRAZOLE SODIUM 40 MG TABLET.DR PO (08:43)
[2025-01-07] MEDS: ASPIRIN 81 MG TABLET.DR PO (08:43)
[2025-01-07] MEDS: PREDNISONE 20 MG TABLET 60 MG PO (08:43)
[2025-01-07] MEDS: MIDODRINE HCL 5 MG TABLET 10 MG PO (08:43)
[2025-01-07] MEDS: APIXABAN 5 MG TABLET PO (08:43)
--- NOTE | 2025-01-07 09:35 | PC.NURSE ---
dr. espinoza at bedside, ultrasound on their way to do RUQ ultrasound
[2025-01-07] MEDS: SCOPOLAMINE 1 MG/3 DAYS TRANSDERM PATCH 1 PATCH TD (09:45)
[2025-01-07] MEDS: MORPHINE SULFATE 2 MG/ML SYRINGE IV (09:46)
[2025-01-07] MEDS: ONDANSETRON PF 4 MG/2 ML VIAL IV (09:46)
[2025-01-07] MEDS: ALBUTEROL SULFATE 2.5 MG/3 ML VIAL NEB IH (11:12)
[2025-01-07] MEDS: BUDESONIDE 0.5 MG/2 ML AMPULE NEB IH (11:12)
--- NOTE | 2025-01-07 11:12 | PM.HP ---
HPI H&P: HPI History of Present Illness Chief complaint: SABINO,CHF,ELEVATED TROPONIN,ACUTE UTI, HYPOTENSION Narrative: 79 y/o female to ER with SOB and confusion. Admitted 01/03-01/06 with CHF exacerbation and did well. Discharged to SNF and family states appeared normal conversation. Overnight developed increased SOB. Very confused and labored breathing. To ER and chest x-ray showed pulmonary vascular congestion but stable. Labs showed elevated WBC and SABINO. LFTs significantly elevated. UA with possible UTI and admitted for treatment. Resumed IV bumex. BP low and continue midodrine. Added rocephin for UTI. Patient very confused and labored breathing this am. Not alert and moaning in discomfort. Opioid HPI Opioid Management Most Recent Pain and Opioid Data: Last Pain Scale 7 01/06/25, 09:54 Last Pain Assessment Today, 04:00 Last ORT Total Score 0 Today, 03:51 Last ORT Risk Category Low Risk Today, 03:51 Review of Systems ROS Status of ROS unobtainable due to mental status PFSH PFSH Medical History (Updated 01/07/25 @ 08:51 by Raheel Guzman MD) CHF (congestive heart failure) ?I50.9 - Heart failure, unspecified (ICD-10) Abdominal pain ?R10.9 - Unspecified abdominal pain (ICD-10) Chronic kidney disease (CKD) ?N18.9 - Chronic kidney disease, unspecified (ICD-10) Congestive heart failure ?I50.9 - Heart failure, unspecified (ICD-10) Type 2 diabetes mellitus ?E11.9 - Type 2 diabetes mellitus without complications (ICD-10) Osteoarthritis ?M19.90 - Unspecified osteoarthritis, unspecified site (ICD-10) Acute constipation ?K59.00 - Constipation, unspecified (ICD-10) GERD (gastroesophageal reflux disease) ?K21.9 - Gastro-esophageal reflux disease without esophagitis (ICD-10) Weakness ?R53.1 - Weakness (ICD-10) Diarrhea ?R19.7 - Diarrhea, unspecified (ICD-10) Lymphedema ?I89.0 - Lymphedema, not elsewhere classified (ICD-10) Anxiety ?F41.9 - Anxiety disorder, unspecified (ICD-10) Depression ?F32.A - Depression, unspecified (ICD-10) Hypothyroidism ?E03.9 - Hypothyroidism, unspecified (ICD-10) Asthma ?J45.909 - Unspecified asthma, uncomplicated (ICD-10) Diverticul disease small and large intestine, no perforati or abscess ?K57.50 - Diverticulosis of both small and large intestine without perforation or abscess without bleeding (ICD-10) Sleep apnea ?G47.30 - Sleep apnea, unspecified (ICD-10) Anemia ?D64.9 - Anemia, unspecified (ICD-10) Pulmonary hypertension ?I27.20 - Pulmonary hypertension, unspecified (ICD-10) Atrial fibrillation ?I48.91 - Unspecified atrial fibrillation (ICD-10) CHF (congestive heart failure) ?I50.9 - Heart failure, unspecified (ICD-10) Hypertensive cardiovascular disease ?I11.9 - Hypertensive heart disease without heart failure (ICD-10) Gastroenteritis ?K52.9 - Noninfective gastroenteritis and colitis, unspecified (ICD-10) Surgical History Pacemaker ?Z95.0 - Presence of cardiac pacemaker (ICD-10) Family History Mother Family history of CHF (congestive heart failure) Family history of cancer Family history of diabetes mellitus Family history of hypertension Family history of stroke Father Family history of CHF (congestive heart failure) Family history of cancer Family history of hypertension Family history of stroke Social History Within the past year, how often did you have a drink containing alcohol: never Score interpretation: A score less than 3 is consistent with normal alcohol consumption. Smoking status: Never smoker Non-prescribed substance use: denies use Previous occupational history: rertired Highest level of school completed/degree received: some college, no degree Are you now , , , , never or living with a partner: In a typical week, how many times do you talk on the telephone with family, friends, or neighbors: 3 or more times per week How often do you get together with friends or relatives: 3 or more times per week How often do you attend mormon or quaker services: never Little interest or pleasure in doing things: not at all Feeling down, depressed, or hopeless: not at all Feel stressed/tense/nervous/anxious/difficulty sleeping: not at all Do you think of yourself as: straight/heterosexual Gender Identity: female Meds Home Medications and Allergies Home Medications ?Medication ?Instructions ?Recorded ?Confirmed ?Type amoxicillin 500 mg capsule 500 mg PO QAM 12/03/24 01/07/25 History apixaban 5 mg tablet (Eliquis) 5 mg PO BID 12/03/24 01/07/25 History aspirin 81 mg tablet,delayed 81 mg PO DAILY 12/03/24 01/07/25 History release (Adult Low Dose Aspirin) atorvastatin 10 mg tablet 10 mg PO DAILY 12/03/24 01/07/25 History bisoprolol fumarate 5 mg tablet 5 mg PO QAM 12/03/24 01/07/25 History bumetanide 1 mg tablet 2 mg PO DAILY 12/03/24 01/07/25 History estradiol 0.01% (0.1 mg/gram) 1 appful vaginal .3 times a week 12/03/24 01/07/25 History vaginal cream fluocinonide 0.05 % topical cream 1 applic topical QPM 12/03/24 01/07/25 History fluticasone propionate 50 2 spray intranasal DAILY PRN 12/03/24 01/07/25 History mcg/actuation nasal allergy symptoms spray,suspension (Flonase Allergy Relief) gabapentin 100 mg capsule 100 mg PO TID 12/03/24 01/07/25 History insulin glargine 100 unit/mL 14 unit subcut QAM 12/03/24 01/07/25 History subcutaneous solution (Lantus U-100 Insulin) levothyroxine 200 mcg tablet 200 mcg PO QAM 12/03/24 01/07/25 History magnesium chloride 71.5 mg 71.5 mg PO BID 12/03/24 01/07/25 History (magnesium chloride) tablet,delayed release (Slow-Mag) mometasone-formoterol HFA 100 2 inh inhalation BID 12/03/24 01/07/25 History mcg-5 mcg/actuation aerosol inhaler (Dulera) omeprazole 40 mg capsule,delayed 40 mg PO BID 12/03/24 01/07/25 History release polyethylene glycol 3350 17 17 g PO QAM 12/03/24 01/07/25 History gram/dose oral powder (ClearLax) sennosides 8.6 mg tablet (senna) 8.6 mg PO QPM 12/03/24 01/07/25 History spironolactone 25 mg tablet 25 mg PO QAM 12/03/24 01/07/25 History trospium 60 mg capsule,extended 60 mg PO QAM 12/03/24 01/07/25 History release 24 hr vit C 250 mg-vit E 90 mg-zinc 40 1 tab PO DAILY 12/03/24 01/07/25 History mg-copper 1 [id number]-umzhbu capsule (PreserVision AREDS-2) acetaminophen 325 mg capsule 650 mg PO Q6H PRN fever or pain 01/03/25 01/07/25 History benzonatate 100 mg capsule 100 mg PO TID PRN cough 01/03/25 01/07/25 History ondansetron 4 mg disintegrating 4 mg PO Q6H PRN nausea and vomiting 01/03/25 01/07/25 History tablet prednisone 50 mg tablet 50 mg PO DAILY 01/03/25 01/07/25 History promethazine 12.5 mg tablet 12.5 mg PO Q6H 01/03/25 01/07/25 History ropinirole 0.5 mg tablet 0.5 mg PO DAILY 01/03/25 01/07/25 History lorazepam 0.5 mg tablet 0.5 mg PO TID PRN Anxiety 5 days 01/06/25 01/07/25 Rx #15 tabs midodrine 5 mg tablet 10 mg (2 x 5 mg) PO TIDWM #90 tabs 01/06/25 01/07/25 Rx tramadol 50 mg tablet 25 mg (1/2 x 50 mg) PO Q6H PRN 01/06/25 01/07/25 Rx pain 5 days #10 tabs albuterol sulfate 2.5 mg/3 mL 1.25 mg inhalation Q6H PRN 01/07/25 01/07/25 History (0.083 %) solution for nebulization shortness of breath or wheezing insulin lispro 100 unit/mL 1 sliding scale dose subcut HS 01/07/25 01/07/25 History subcutaneous pen (Humalog KwikPen (U-100) Insulin) insulin lispro 100 unit/mL 1 sliding scale dose subcut TID 01/07/25 01/07/25 History subcutaneous solution (Admelog U-100 Insulin lispro) Allergies Allergy/AdvReac Type Severity Reaction Status Date / Time dapagliflozin (From [facility]) Allergy Severe Unknown Verified 01/06/25 22:44 metformin Allergy Severe Unknown Verified 01/06/25 22:44 metoprolol Allergy Severe Unknown Verified 01/06/25 22:44 Sulfa (Sulfonamide Allergy Severe Rash Verified 01/06/25 22:44 Antibiotics) Exam Constitutional Vital Signs, click to edit/add: Last Vital Signs Temp 97.4 F L 01/07/25 08:00 Pulse 79 01/07/25 09:57 Resp 20 01/07/25 03:53 BP 92/42 L 01/07/25 08:12 Pulse Ox 97 01/07/25 08:00 O2 Del Method Nasal Cannula 01/07/25 08:00 O2 Flow Rate 2 01/07/25 08:00 Exam limitations: altered mental status General appearance: in distress HENMT Common normals: normocephalic Eye Common normals: PERRL and EOMs intact bilaterally Respiratory Common normals: normal respiratory effort and clear to auscultation bilaterally Cardio Common normals: regular rate, regular rhythm, no gallops, no murmurs and no rub GI Common normals: Normal to inspection, nondistended, normoactive bowel sounds present and non-tender Results Labs Labs: Short CBC 01/06/25 01/07/25 Range/Units 22:54 05:08 WBC 13.0 H 16.2 H (4.0-11.0) 10^3/uL Hgb 17.2 H 15.6 (12.0-16.0) g/dL Hct 50.8 H 47.1 (36.0-48.0) % Plt Count 142 L 115 L (150-450) 10^3/uL BMP 01/06/25 01/07/25 22:54 05:08 Sodium 135 L 134 L Potassium 4.6 4.6 Chloride 97 L 98 Carbon Dioxide 22.1 21.0 BUN 62.0 H 65.0 H Creatinine 2.17 H 2.57 H Glucose 71 L 89 Calcium 9.5 9.3 Liver Function 01/06/25 01/07/25 Range/Units 22:54 05:08 Total Bilirubin 3.3 H 3.2 H (0.2-1.0) mg/dL AST 979 H* 1441 H* (15-37) U/L ALT 488 H 642 H* (14-59) U/L Alkaline Phosphatase 276 H 278 H (46-116) U/L Albumin 2.5 L 2.3 L (3.4-5.0) g/dL Urine 01/07/25 Range/Units 01:35 Urine Color Lt. yellow (YELLOW) Urine Clarity Clear (CLEAR) Urine pH 6.0 (5.0-9.0) Ur Specific [place] 1.010 (1.005-1.025) Urine Protein Trace (NEG/TRACE) mg/dL Urine Glucose (UA) Negative (NEGATIVE) mg/dL ABG ABG results: 01/07/25 05:08 VBG pH 7.446 H VBG pCO2 25.8 L Assessment and Plan Assessment and Plan (1) Acute on chronic heart failure with preserved ejection fraction (HFpEF): (2) Acute hypoxic respiratory failure: (3) Transaminitis: (4) Acute UTI (urinary tract infection): (5) SABINO (acute kidney injury): (6) Elevated troponin: (7) Hypotension: (8) Type 2 diabetes mellitus with hyperglycemia: (9) Chronic atrial fibrillation: (10) History of heart valve replacement: (11) Adult hypothyroidism: (12) CKD stage 3b, GFR 30-44 ml/min: Plan Patient with significant change compared to yesterday. Now altered and in distress. LFTs elevated and check US RUQ. Continue IV bumex and midodrine. Resumed home medication. Monitor labs. Give morphine and ativan for comfort. Long discussion with family about presentation and prognosis. Urinary Catheter Management Urinary Catheter Management 2-way Urethral: Cath placed during this visit: yes Urethral indwelling: Yes Reason for continuing: measure accurate output Insertion date: 01/07/25 Insertion time: 01:30
[2025-01-07] MEDS: LORAZEPAM 2 MG/ML VIAL 0.5 MG IV (11:23)
--- NOTE | 2025-01-07 11:28 | CM.NOTE ---
Rounds made with Dr. Guzman. Dr. Guzman reviews results and plan of care with multiple family members. Ultrasound abdomen to be ordered. Family verbalizes understanding.
--- NOTE | 2025-01-07 11:50 | PC.NURSE ---
pt given bath, mottling noted from abdomen down, pts nurse notified
--- NOTE | 2025-01-07 11:52 | SWNOTE1 ---
SW stopped in room with nurse, pt had change in condition. SW went to get family from cafeteria to have them come to room.
--- NOTE | 2025-01-07 14:28 | PC.NURSE ---
family came and got nurse stating the patient had stopped breathing. Absence of apical pulse verified by auscultation by Cindy Maxwell RN and Evelia Bertrand RN at bedside. Dr. Guzman notified
== END 2025-01-07 16:18 | disposition expired ==
LOC: ER 01-07 02:36 → MS 01-07 03:19
PROVIDERS: Registered Nurse; Admitting Provider Family Medicine; Emergency Provider Internal Medicine; PCP Family Medicine; Visit Provider Family Medicine
DX: I13.0 Hypertensive heart and chronic kidney disease with heart failure and stage 1 through stage 4 chronic kidney disease, or unspecified chronic kidney disease (principal); I50.33 Acute on chronic diastolic (congestive) heart failure; I21.A1 Myocardial infarction type 2; J96.01 Acute respiratory failure with hypoxia; N17.9 Acute kidney failure, unspecified; I48.20 Chronic atrial fibrillation, unspecified; N39.0 Urinary tract infection, site not specified; B96.89 Other specified bacterial agents as the cause of diseases classified elsewhere; Z66 Do not resuscitate; R74.01 Elevation of levels of liver transaminase levels; E11.65 Type 2 diabetes mellitus with hyperglycemia; E11.22 Type 2 diabetes mellitus with diabetic chronic kidney disease; N18.32 Chronic kidney disease, stage 3b; E03.9 Hypothyroidism, unspecified; R45.1 Restlessness and agitation; Z95.2 Presence of prosthetic heart valve; K21.9 Gastro-esophageal reflux disease without esophagitis; F41.9 Anxiety disorder, unspecified; J45.909 Unspecified asthma, uncomplicated; Z95.0 Presence of cardiac pacemaker; Z79.01 Long term (current) use of anticoagulants; K59.00 Constipation, unspecified; Z79.82 Long term (current) use of aspirin; Z79.899 Other long term (current) drug therapy; Z79.4 Long term (current) use of insulin; Z79.890 Hormone replacement therapy; Z79.52 Long term (current) use of systemic steroids; Z88.2 Allergy status to sulfonamides; Z88.8 Allergy status to other drugs, medicaments and biological substances
CPT/HCPCS: 36415; 51702; 71045; 76705; 80053; 81001; 82800; 82948; 83735; 83880; 84484; 85007; 85025; 85027; 87040; 87086; 87088; 87186; 93005; 94640; 94761; 96374; 96375; 99285; J0696; J1938; J2060; J2270; J2405; J2919; J7512